=== PATIENT | male | born 1960 | race American Indian/Alaskan Native ===

== ENCOUNTER 2018-02-11 01:11 | Inpatient (IN) | payer MEDICAID ==
[2018-02-11 03:30] LABS: Basophils % (Auto) 0.8 % (0.0-1.8); Eosinophils # (Auto) 0.1 K/mm3 (0.0-0.4); Eosinophils % (Auto) 1.7 % (0.0-4.3); Hematocrit 47.3 % (35.5-45.6); Lymphocytes # (Auto) 1.5 K/mm3 (1.2-5.4); Mean Corpuscular HGB Conc 34 % (32-34); Mean Corpuscular Hemoglobin 30 pg (28-32); Mean Corpuscular Volume 88 fl (84-94); Monocytes # (Auto) 0.7 K/mm3 (0.0-0.8); Monocytes % (Auto) 13.7 % (0.0-7.3); Platelet Count 227 K/mm3 (140-440); Red Cell Distribution Width 15.5 % (13.2-15.2)
[2018-02-11] MEDS ORDERED: CATAPRES ONE (03:35)
[2018-02-11] MEDS ORDERED: CATAPRES PO ONE ×2 (03:50→18:12)
[2018-02-11 04:01] LABS: BUN/Creatinine Ratio 16; Blood Urea Nitrogen 19 mg/dL (9-20); Calcium 8.7 mg/dL (8.4-10.2); Hemolysis Index 12
[2018-02-11 07:50] LABS: Bilirubin,Urine NEG (Negative); Blood,Urine SM (Negative); Calcium Oxalate Crystals,Urine 1+; Color,Urine Yellow (Yellow); Mucus,Urine 1+ /HPF
[2018-02-11 08:02] LABS: Amphetamine Screen,Urine PRESUMPTIVE NEGATIVE; Benzodiazepines Screen,Urine PRESUMPTIVE NEGATIVE; Cannabinoid Screen,Urine PRESUMPTIVE NEGATIVE; Methadone Screen,Urine PRESUMPTIVE NEGATIVE; Opiate Screen,Urine PRESUMPTIVE NEGATIVE
[2018-02-11 08:17] LABS: Cocaine Screen,Urine PRESUMPTIVE POSITIVE
--- NOTE | 2018-02-11 11:22 | Emergency Department Report ---
HPI - General Chief Complaint: Psych Time Seen by Provider: 02/11/18 11:09 - HPI HPI: Room 7 The patient is a 57-year-old male presenting with a chief complaint of right shoulder pain. The patient states he's had pain in his right shoulder radiating down to the fingers for the past 2 weeks. Patient states the pain is constant but worsens with movement. Patient denies any preceding trauma. Patient denies any history of fever. Location: Right shoulder Duration: 2 weeks Quality: Pain Severity: Moderate Modifying factors: [see above] Context: [see above] Mode of transportation: Unknown ED Past Medical Hx - Past Medical History Previous Medical History?: Yes Hx of Cancer: Yes Hx Headaches / Migraines: Yes Hx Psychiatric Treatment: Yes (psychizo affective disorder) Hx Asthma: Yes - Surgical History Past Surgical History?: Yes Hx Cholecystectomy: Yes Additional Surgical History: hip - Family History Family history: no significant - Social History Smoking Status: Current Every Day Smoker Substance Use Type: Alcohol, Cocaine - Medications Home Medications: Home Medications Medication Instructions Recorded Confirmed Last Taken Type ALBUTEROL NEB's [Proventil] 2.5 mg IH TID PRN 12/29/15 12/29/15 Unknown History ALPRAZolam [Xanax TAB] 2 mg PO TID PRN 12/29/15 12/29/15 Unknown History Aspirin [Aspirin BABY CHEW TAB] 81 mg PO QDAY 12/29/15 12/29/15 Unknown History EPINEPHrine (NF) [Epipen (Nf)] 0.3 mg IM PRN PRN 12/29/15 12/29/15 Unknown History Escitalopram Oxalate [Lexapro] 20 mg PO DAILY 12/29/15 12/29/15 Unknown History Hydrochlorothiazide [HCTZ] 25 mg PO QDAY 12/29/15 12/29/15 Unknown History Metoprolol [Lopressor] 25 mg PO BID 12/29/15 12/29/15 Unknown History Omeprazole [PriLOSEC] 20 mg PO QDAY 12/29/15 12/29/15 Unknown History Quetiapine Fumarate [SEROquel] 50 mg PO QDAY 12/29/15 12/29/15 Unknown History Simvastatin [Zocor TAB] 20 mg PO QHS 12/29/15 12/29/15 Unknown History Zolpidem [Ambien] 10 mg PO QHS 12/29/15 12/29/15 Unknown History amLODIPine [Norvasc] 10 mg PO DAILY 12/29/15 12/29/15 Unknown History ED Review of Systems ROS: Stated complaint: HIGH BP/DRUG USE Other details as noted in HPI Constitutional: denies: fever Musculoskeletal: arthralgia, myalgia Physical Exam - Physical Exam Vital Signs: Vital Signs 02/11/18 02/11/18 02/11/18 02:53 04:14 10:32 Temperature 98.8 F Pulse Rate 86 80 Respiratory 20 20 Rate Blood Pressure 195/124 195/124 O2 Sat by Pulse 98 100 Oximetry Laboratory Tests 02/11/18 02/11/18 02/11/18 03:14 03:14 03:14 WBC RBC Hgb Hct MCV MCH MCHC RDW Plt Count Lymph % (Auto) [place] % (Auto) Eos % (Auto) Baso % (Auto) Lymph # [place] # Eos # Baso # Seg Neutrophils % Seg Neutrophils # Sodium 136 L Potassium 4.0 Chloride 94.8 L Carbon Dioxide 26 Anion Gap 19 BUN 19 Creatinine 1.2 Estimated GFR > 60 BUN/Creatinine Ratio 16 Glucose 189 H Calcium 8.7 Urine Color Urine Turbidity Urine pH Ur Specific [place] Urine Protein Urine Glucose (UA) Urine Ketones Urine Blood Urine Nitrite Urine Bilirubin Urine Urobilinogen Ur Leukocyte Esterase Urine WBC (Auto) Urine RBC (Auto) Calcium Oxalate Crystal Urine Mucus Salicylates < 0.3 L Urine Opiates Screen Urine Methadone Screen Acetaminophen < 5.0 L Ur Barbiturates Screen Ur Phencyclidine Scrn Ur Amphetamines Screen U Benzodiazepines Scrn Urine Cocaine Screen U Marijuana (THC) Screen Drugs of Abuse Note Plasma/Serum Alcohol 02/11/18 02/11/18 02/11/18 03:14 03:14 07:07 WBC 5.4 RBC 5.40 H Hgb 16.0 H Hct 47.3 H MCV 88 MCH 30 MCHC 34 RDW 15.5 H Plt Count 227 Lymph % (Auto) 27.0 [place] % (Auto) 13.7 H Eos % (Auto) 1.7 Baso % (Auto) 0.8 Lymph # 1.5 [place] # 0.7 Eos # 0.1 Baso # 0.0 Seg Neutrophils % 56.8 Seg Neutrophils # 3.1 Sodium Potassium Chloride Carbon Dioxide Anion Gap BUN Creatinine Estimated GFR BUN/Creatinine Ratio Glucose Calcium Urine Color Yellow Urine Turbidity Clear Urine pH 5.0 Ur Specific [place] 1.032 H Urine Protein 30 mg/dl Urine Glucose (UA) Neg Urine Ketones Neg Urine Blood Sm Urine Nitrite Neg Urine Bilirubin Neg Urine Urobilinogen 2.0 Ur Leukocyte Esterase Neg Urine WBC (Auto) 2.0 Urine RBC (Auto) 15.0 Calcium Oxalate Crystal 1+ Urine Mucus 1+ Salicylates Urine Opiates Screen Urine Methadone Screen Acetaminophen Ur Barbiturates Screen Ur Phencyclidine Scrn Ur Amphetamines Screen U Benzodiazepines Scrn Urine Cocaine Screen U Marijuana (THC) Screen Drugs of Abuse Note Plasma/Serum Alcohol < 0.01 02/11/18 07:07 WBC RBC Hgb Hct MCV MCH MCHC RDW Plt Count Lymph % (Auto) [place] % (Auto) Eos % (Auto) Baso % (Auto) Lymph # [place] # Eos # Baso # Seg Neutrophils % Seg Neutrophils # Sodium Potassium Chloride Carbon Dioxide Anion Gap BUN Creatinine Estimated GFR BUN/Creatinine Ratio Glucose Calcium Urine Color Urine Turbidity Urine pH Ur Specific [place] Urine Protein Urine Glucose (UA) Urine Ketones Urine Blood Urine Nitrite Urine Bilirubin Urine Urobilinogen Ur Leukocyte Esterase Urine WBC (Auto) Urine RBC (Auto) Calcium Oxalate Crystal Urine Mucus Salicylates Urine Opiates Screen Presumptive negative Urine Methadone Screen Presumptive negative Acetaminophen Ur Barbiturates Screen Presumptive negative Ur Phencyclidine Scrn Presumptive negative Ur Amphetamines Screen Presumptive negative U Benzodiazepines Scrn Presumptive negative Urine Cocaine Screen Presumptive positive U Marijuana (THC) Screen Presumptive negative Drugs of Abuse Note Disclamer Plasma/Serum Alcohol Physical Exam: GENERAL: The patient is well-developed well-nourished male lying on stretcher sleeping on appeared to be in acute distress. [] HEENT: Normocephalic. Atraumatic. Extraocular motions are intact. Patient has moist mucous membranes. NECK: Supple. No meningitic signs are noted. No axial tenderness to palpation CHEST/LUNGS: Clear to auscultation. There is no respiratory distress noted. HEART/CARDIOVASCULAR: Regular. There is no tachycardia. There is no gallop rub or murmur. ABDOMEN: Abdomen is soft, nontender. Patient has normal bowel sounds. There is no abdominal distention. SKIN: There is no rash. There is no edema. There is no diaphoresis. NEURO: The patient is asleep easily awakened by verbal stimuli. Patient frequently falls back asleep during the interview but easily awakened verbal. The patient is cooperative. The patient has normal speech MUSCULOSKELETAL: There is some discomfort to palpation along the right trapezius posteriorly. There is no evidence of acute injury. ED Course Vital Signs 02/11/18 02/11/18 02/11/18 02:53 04:14 10:32 Temperature 98.8 F Pulse Rate 86 80 Respiratory 20 20 Rate Blood Pressure 195/124 195/124 O2 Sat by Pulse 98 100 Oximetry ED Medical Decision Making - Lab Data Result diagrams: 02/11/18 03:14 02/11/18 03:14 Laboratory Tests 02/11/18 02/11/18 02/11/18 03:14 03:14 03:14 WBC RBC Hgb Hct MCV MCH MCHC RDW Plt Count Lymph % (Auto) [place] % (Auto) Eos % (Auto) Baso % (Auto) Lymph # [place] # Eos # Baso # Seg Neutrophils % Seg Neutrophils # Sodium 136 L Potassium 4.0 Chloride 94.8 L Carbon Dioxide 26 Anion Gap 19 BUN 19 Creatinine 1.2 Estimated GFR > 60 BUN/Creatinine Ratio 16 Glucose 189 H Calcium 8.7 Total Creatine Kinase CK-MB (CK-2) CK-MB (CK-2) Rel Index Troponin T Urine Color Urine Turbidity Urine pH Ur Specific [place] Urine Protein Urine Glucose (UA) Urine Ketones Urine Blood Urine Nitrite Urine Bilirubin Urine Urobilinogen Ur Leukocyte Esterase Urine WBC (Auto) Urine RBC (Auto) Calcium Oxalate Crystal Urine Mucus Salicylates < 0.3 L Urine Opiates Screen Urine Methadone Screen Acetaminophen < 5.0 L Ur Barbiturates Screen Ur Phencyclidine Scrn Ur Amphetamines Screen U Benzodiazepines Scrn Urine Cocaine Screen U Marijuana (THC) Screen Drugs of Abuse Note Plasma/Serum Alcohol 02/11/18 02/11/18 02/11/18 03:14 03:14 07:07 WBC 5.4 RBC 5.40 H Hgb 16.0 H Hct 47.3 H MCV 88 MCH 30 MCHC 34 RDW 15.5 H Plt Count 227 Lymph % (Auto) 27.0 [place] % (Auto) 13.7 H Eos % (Auto) 1.7 Baso % (Auto) 0.8 Lymph # 1.5 [place] # 0.7 Eos # 0.1 Baso # 0.0 Seg Neutrophils % 56.8 Seg Neutrophils # 3.1 Sodium Potassium Chloride Carbon Dioxide Anion Gap BUN Creatinine Estimated GFR BUN/Creatinine Ratio Glucose Calcium Total Creatine Kinase CK-MB (CK-2) CK-MB (CK-2) Rel Index Troponin T Urine Color Yellow Urine Turbidity Clear Urine pH 5.0 Ur Specific [place] 1.032 H Urine Protein 30 mg/dl Urine Glucose (UA) Neg Urine Ketones Neg Urine Blood Sm Urine Nitrite Neg Urine Bilirubin Neg Urine Urobilinogen 2.0 Ur Leukocyte Esterase Neg Urine WBC (Auto) 2.0 Urine RBC (Auto) 15.0 Calcium Oxalate Crystal 1+ Urine Mucus 1+ Salicylates Urine Opiates Screen Urine Methadone Screen Acetaminophen Ur Barbiturates Screen Ur Phencyclidine Scrn Ur Amphetamines Screen U Benzodiazepines Scrn Urine Cocaine Screen U Marijuana (THC) Screen Drugs of Abuse Note Plasma/Serum Alcohol < 0.01 02/11/18 02/11/18 07:07 11:33 WBC RBC Hgb Hct MCV MCH MCHC RDW Plt Count Lymph % (Auto) [place] % (Auto) Eos % (Auto) Baso % (Auto) Lymph # [place] # Eos # Baso # Seg Neutrophils % Seg Neutrophils # Sodium Potassium Chloride Carbon Dioxide Anion Gap BUN Creatinine Estimated GFR BUN/Creatinine Ratio Glucose Calcium Total Creatine Kinase 2945 H CK-MB (CK-2) 12.2 H CK-MB (CK-2) Rel Index 0.4 Troponin T < 0.010 Urine Color Urine Turbidity Urine pH Ur Specific [place] Urine Protein Urine Glucose (UA) Urine Ketones Urine Blood Urine Nitrite Urine Bilirubin Urine Urobilinogen Ur Leukocyte Esterase Urine WBC (Auto) Urine RBC (Auto) Calcium Oxalate Crystal Urine Mucus Salicylates Urine Opiates Screen Presumptive negative Urine Methadone Screen Presumptive negative Acetaminophen Ur Barbiturates Screen Presumptive negative Ur Phencyclidine Scrn Presumptive negative Ur Amphetamines Screen Presumptive negative U Benzodiazepines Scrn Presumptive negative Urine Cocaine Screen Presumptive positive U Marijuana (THC) Screen Presumptive negative Drugs of Abuse Note Disclamer Plasma/Serum Alcohol - EKG Data -: EKG Interpreted by Me EKG shows normal: sinus rhythm Rate: normal - EKG Data When compared to previous EKG there are: previous EKG unavailable Interpretation: other (no ischemic changes seen) - Radiology Data Radiology results: image reviewed (right shoulder x-ray) interpreted by me: Right shoulder x-ray-no acute fracture, no dislocation - Medical Decision Making Results discussed with patient. Will admit to the hospital - Differential Diagnosis hypertension, equivalent angina, polysubstance abuse Critical care attestation.: If time is entered above; I have spent that time in minutes in the direct care of this critically ill patient, excluding procedure time. ED Disposition Clinical Impression: Polysubstance abuse, Hypertension, Right shoulder pain, Rhabdomyolysis Disposition: OP ADMIT IP TO THIS HOSP Is pt being admited?: Yes Does the pt Need Aspirin: Yes Condition: Stable Instructions: Hypertension (ED) Time of Disposition: 12:38 (hospitalist notified (Dr Tang))
[2018-02-11 12:18] LABS: Creatine Kinase MB 12.2 ng/mL (0.0-4.0)
--- NOTE | 2018-02-11 12:37 | XRay Report ---
XRAY RIGHT SHOULDER THREE VIEWS: 02/11/18 01:11:00 CLINICAL: Right shoulder pain. FINDINGS: No fracture or dislocation. Mild arthritis of the acromioclavicular joint and glenohumeral joint. Normal soft tissues. IMPRESSION: Mild arthritis.
[2018-02-11] MEDS ORDERED: NACL 0.9% 1000 ML 1,000 ML IV ONE ×2 (12:39)
--- NOTE | 2018-02-11 21:09 | History and Physical Report ---
History of Present Illness Date of examination: 02/11/18 Date of admission: 02/11/18 18:24 Chief complaint: Chief complaint: Right shoulder pain and muscle aches 3 days History of present illness: MEME: 57-year-old female complains of right shoulder pain and generalized muscle pains. Pain is constant. No fever no chills patient on no statins for hyperlipidemia. This has been going on for 2 weeks. Bursal as well as the ER physician to admit because of the elevated CK levels. No trauma Past Medical History Previous Medical History?: Yes Hx of Cancer: Yes Hx Headaches / Migraines: Yes Hx Psychiatric Treatment: Yes (psychizo affective disorder) Hx Asthma: Yes Surgical History Past Surgical History?: Yes Hx Cholecystectomy: Yes Additional Surgical History: hip Family History Family history: no significant Social History Smoking Status: Current Every Day Smoker Substance Use Type: Alcohol, Cocaine - Medications Home Medications: Home Medications Medication Instructions Recorded Confirmed Last Taken Type ALBUTEROL NEB's [Proventil] 2.5 mg IH TID PRN 12/29/15 12/29/15 Unknown History ALPRAZolam [Xanax TAB] 2 mg PO TID PRN 12/29/15 12/29/15 Unknown History Aspirin [Aspirin BABY CHEW TAB] 81 mg PO QDAY 12/29/15 12/29/15 Unknown History EPINEPHrine (NF) [Epipen (Nf)] 0.3 mg IM PRN PRN 12/29/15 12/29/15 Unknown History Escitalopram Oxalate [Lexapro] 20 mg PO DAILY 12/29/15 12/29/15 Unknown History Hydrochlorothiazide [HCTZ] 25 mg PO QDAY 12/29/15 12/29/15 Unknown History Metoprolol [Lopressor] 25 mg PO BID 12/29/15 12/29/15 Unknown History Omeprazole [PriLOSEC] 20 mg PO QDAY 12/29/15 12/29/15 Unknown History Quetiapine Fumarate [SEROquel] 50 mg PO QDAY 12/29/15 12/29/15 Unknown History Simvastatin [Zocor TAB] 20 mg PO QHS 12/29/15 12/29/15 Unknown History Zolpidem [Ambien] 10 mg PO QHS 12/29/15 12/29/15 Unknown History amLODIPine [Norvasc] 10 mg PO DAILY 12/29/15 12/29/15 Unknown History Review of Systems ROS: Stated complaint: HIGH BP/DRUG USE Other details as noted in HPI Constitutional: denies: fever Musculoskeletal: arthralgia, myalgia 14 point review of systems done--- negative otherwise Medications and Allergies Allergies Allergy/AdvReac Type Severity Reaction Status Date / Time Penicillins Allergy Hives Verified 12/28/15 22:38 tomato Allergy Hives Verified 12/28/15 22:38 venom-wasp [wasp venom] Allergy Hives Verified 12/28/15 22:38 Home Medications Medication Instructions Recorded Confirmed Last Taken Type ALBUTEROL NEB's [Proventil] 2.5 mg IH TID PRN 12/29/15 02/11/18 Unknown History ALPRAZolam [Xanax TAB] 2 mg PO TID PRN 12/29/15 02/11/18 Unknown History Aspirin [Aspirin BABY CHEW TAB] 81 mg PO QDAY 12/29/15 12/29/15 Unknown History EPINEPHrine (NF) [Epipen (Nf)] 0.3 mg IM PRN PRN 12/29/15 02/11/18 Unknown History Escitalopram Oxalate [Lexapro] 20 mg PO DAILY 12/29/15 12/29/15 Unknown History Hydrochlorothiazide [HCTZ] 25 mg PO QDAY 12/29/15 02/11/18 Unknown History Metoprolol [Lopressor] 25 mg PO BID 12/29/15 02/11/18 Unknown History Omeprazole [PriLOSEC] 20 mg PO QDAY 12/29/15 12/29/15 Unknown History Quetiapine Fumarate [SEROquel] 50 mg PO QDAY 12/29/15 02/11/18 Unknown History Simvastatin [Zocor TAB] 20 mg PO QHS 12/29/15 12/29/15 Unknown History Zolpidem [Ambien] 10 mg PO QHS 12/29/15 02/11/18 Unknown History amLODIPine [Norvasc] 10 mg PO DAILY 12/29/15 02/11/18 Unknown History Exam - Physical Exam Narrative exam: Patient lying in bed comfortably-in no distress - Constitutional Vitals: Temp Pulse Resp BP Pulse Ox 98.4 F 69 20 148/95 97 02/11/18 20:36 02/11/18 20:36 02/11/18 20:36 02/11/18 20:36 02/11/18 20:36 General appearance: Present: no acute distress, well-nourished - EENT Eyes: Present: PERRL ENT: hearing intact, clear oral mucosa - Neck Neck: Present: supple, normal ROM - Respiratory Respiratory effort: normal Respiratory: bilateral: CTA - Cardiovascular Heart Sounds: Present: S1 & S2. Absent: rub, click - Extremities Extremities: pulses symmetrical, No edema Peripheral Pulses: within normal limits - Abdominal General gastrointestinal: Present: soft, non-tender, non-distended, normal bowel sounds Male genitourinary: Present: normal - Integumentary Integumentary: Present: clear, warm, dry - Musculoskeletal Musculoskeletal: gait normal, strength equal bilaterally - Psychiatric Psychiatric: appropriate mood/affect, intact judgment & insight - Neurologic Neurologic: CNII-XII intact, moves all extremities Results - Labs CBC & Chem 7: 02/11/18 03:14 02/11/18 03:14 Labs: Laboratory Last Values WBC 5.4 K/mm3 (4.5-11.0) 02/11/18 03:14 RBC 5.40 M/mm3 (3.65-5.03) H 02/11/18 03:14 Hgb 16.0 gm/dl (11.8-15.2) H 02/11/18 03:14 Hct 47.3 % (35.5-45.6) H 02/11/18 03:14 MCV 88 fl (84-94) 02/11/18 03:14 MCH 30 pg (28-32) 02/11/18 03:14 MCHC 34 % (32-34) 02/11/18 03:14 RDW 15.5 % (13.2-15.2) H 02/11/18 03:14 Plt Count 227 K/mm3 (140-440) 02/11/18 03:14 Lymph % (Auto) 27.0 % (13.4-35.0) 02/11/18 03:14 [place] % (Auto) 13.7 % (0.0-7.3) H 02/11/18 03:14 Eos % (Auto) 1.7 % (0.0-4.3) 02/11/18 03:14 Baso % (Auto) 0.8 % (0.0-1.8) 02/11/18 03:14 Lymph # 1.5 K/mm3 (1.2-5.4) 02/11/18 03:14 [place] # 0.7 K/mm3 (0.0-0.8) 02/11/18 03:14 Eos # 0.1 K/mm3 (0.0-0.4) 02/11/18 03:14 Baso # 0.0 K/mm3 (0.0-0.1) 02/11/18 03:14 Seg Neutrophils % 56.8 % (40.0-70.0) 02/11/18 03:14 Seg Neutrophils # 3.1 K/mm3 (1.8-7.7) 02/11/18 03:14 Sodium 136 mmol/L (137-145) L 02/11/18 03:14 Potassium 4.0 mmol/L (3.6-5.0) 02/11/18 03:14 Chloride 94.8 mmol/L (98-107) L 02/11/18 03:14 Carbon Dioxide 26 mmol/L (22-30) 02/11/18 03:14 Anion Gap 19 mmol/L 02/11/18 03:14 BUN 19 mg/dL (9-20) 02/11/18 03:14 Creatinine 1.2 mg/dL (0.8-1.5) 02/11/18 03:14 Estimated GFR > 60 ml/min 02/11/18 03:14 BUN/Creatinine Ratio 16 % 02/11/18 03:14 Glucose 189 mg/dL (75-100) H 02/11/18 03:14 Calcium 8.7 mg/dL (8.4-10.2) 02/11/18 03:14 Total Creatine Kinase 2945 units/L (55-170) H 02/11/18 11:33 CK-MB (CK-2) 12.2 ng/mL (0.0-4.0) H 02/11/18 11:33 CK-MB (CK-2) Rel Index 0.4 (0-4) 02/11/18 11:33 Troponin T < 0.010 ng/mL (0.00-0.029) 02/11/18 11:33 Urine Color Yellow (Yellow) 02/11/18 07:07 Urine Turbidity Clear (Clear) 02/11/18 07:07 Urine pH 5.0 (5.0-7.0) 02/11/18 07:07 Ur Specific [place] 1.032 (1.003-1.030) H 02/11/18 07:07 Urine Protein 30 mg/dl mg/dL (Negative) 02/11/18 07:07 Urine Glucose (UA) Neg mg/dL (Negative) 02/11/18 07:07 Urine Ketones Neg mg/dL (Negative) 02/11/18 07:07 Urine Blood Sm (Negative) 02/11/18 07:07 Urine Nitrite Neg (Negative) 02/11/18 07:07 Urine Bilirubin Neg (Negative) 02/11/18 07:07 Urine Urobilinogen 2.0 mg/dL (<2.0) 02/11/18 07:07 Ur Leukocyte Esterase Neg (Negative) 02/11/18 07:07 Urine WBC (Auto) 2.0 /HPF (0.0-6.0) 02/11/18 07:07 Urine RBC (Auto) 15.0 /HPF (0.0-6.0) 02/11/18 07:07 Calcium Oxalate Crystal 1+ 02/11/18 07:07 Urine Mucus 1+ /HPF 02/11/18 07:07 Salicylates < 0.3 mg/dL (2.8-20.0) L 02/11/18 03:14 Urine Opiates Screen Presumptive negative 02/11/18 07:07 Urine Methadone Screen Presumptive negative 02/11/18 07:07 Acetaminophen < 5.0 ug/mL (10.0-30.0) L 02/11/18 03:14 Ur Barbiturates Screen Presumptive negative 02/11/18 07:07 Ur Phencyclidine Scrn Presumptive negative 02/11/18 07:07 Ur Amphetamines Screen Presumptive negative 02/11/18 07:07 U Benzodiazepines Scrn Presumptive negative 02/11/18 07:07 Urine Cocaine Screen Presumptive positive 02/11/18 07:07 U Marijuana (THC) Screen Presumptive negative 02/11/18 07:07 Drugs of Abuse Note Disclamer 02/11/18 07:07 Plasma/Serum Alcohol < 0.01 % (0-0.07) 02/11/18 03:14 Short CBC 02/11/18 Range/Units 03:14 WBC 5.4 (4.5-11.0) K/mm3 Hgb 16.0 H (11.8-15.2) gm/dl Hct 47.3 H (35.5-45.6) % Plt Count 227 (140-440) K/mm3 BMP 02/11/18 03:14 Sodium 136 L Potassium 4.0 Chloride 94.8 L Carbon Dioxide 26 BUN 19 Creatinine 1.2 Glucose 189 H Calcium 8.7 Cardiac Enzymes 02/11/18 Range/Units 11:33 Total Creatine Kinase 2945 H (55-170) units/L CK-MB (CK-2) 12.2 H (0.0-4.0) ng/mL Troponin T < 0.010 (0.00-0.029) ng/mL Urine 02/11/18 Range/Units 07:07 Urine Color Yellow (Yellow) Urine pH 5.0 (5.0-7.0) Ur Specific [place] 1.032 H (1.003-1.030) Urine Protein 30 mg/dl (Negative) mg/dL Urine Glucose (UA) Neg (Negative) mg/dL - Imaging and Cardiology EKG: report reviewed Imaging and Cardiology: Right shoulder x-ray Mild arthritis Assessment and Plan Assessment and plan: ht Advance Directives: Yes (full code) VTE prophylaxis?: Chemical Plan of care discussed with patient/family: Yes - Patient Problems (1) Rhabdomyolysis Current Visit: Yes Status: Acute Qualifiers: Rhabdomyolysis type: non-traumatic Qualified Code(s): M62.82 - Rhabdomyolysis Plan to address problem: Statins were stopped. Patient to be counseled about the effects of statins on myopathy. IV fluids for now Creatinine kinase serially. (2) Right shoulder pain Current Visit: Yes Status: Chronic Plan to address problem: Analgesics as necessary (3) Polysubstance abuse Current Visit: Yes Status: Chronic Plan to address problem: Patient has a history of cocaine abuse. Patient counseled (4) Hypertension Current Visit: Yes Status: Chronic Qualifiers: Hypertension type: essential hypertension Qualified Code(s): I10 - Essential (primary) hypertension Plan to address problem: Including his new continue antihypertensives (5) OXANA (generalized anxiety disorder) Current Visit: Yes Status: Chronic Plan to address problem: continue Xanax (6) Hyperlipidemia Current Visit: Yes Status: Chronic Qualifiers: Hyperlipidemia type: mixed hyperlipidemia Qualified Code(s): E78.2 - Mixed hyperlipidemia Plan to address problem: Statin stopped because of the high creatinine kinase (7) GERD (gastroesophageal reflux disease) Current Visit: Yes Status: Chronic Qualifiers: Esophagitis presence: without esophagitis Qualified Code(s): K21.9 - Gastro -esophageal reflux disease without esophagitis Plan to address problem: continue omeprazole or substituted PPIs (8) Bipolar disorder Current Visit: Yes Status: Chronic Qualifiers: Active/Remission status: in full remission Plan to address problem: continue Seroquel (9) DVT prophylaxis Current Visit: Yes Status: Acute Plan to address problem: On heparin
[2018-02-11] MEDS ORDERED: PROVENTIL IH PRN (21:10)
[2018-02-11] MEDS ORDERED: NON-FORMULARY (Alprazolam [Xanax Tab] 2 MG) PO PRN (21:10)
[2018-02-11] MEDS ORDERED: SODIUM CHLORIDE FLUSH SYRINGE 10 ML IV PRN (21:12)
[2018-02-11] MEDS ORDERED: MORPHINE IV PRN (21:12)
[2018-02-11] MEDS ORDERED: ZOFRAN IV PRN (21:12)
[2018-02-11] MEDS ORDERED: TYLENOL PO PRN (21:12)
[2018-02-11] MEDS ORDERED: NON-FORMULARY (Quetiapine Fumarate [Seroquel] 50 MG) PO SCH (21:15)
[2018-02-11] MEDS ORDERED: NON-FORMULARY (Escitalopram Oxalate [Lexapro] 20 MG) PO SCH (21:15)
[2018-02-11] MEDS ORDERED: XANAX PO PRN (21:26)
[2018-02-11] MEDS: LOPRESSOR PO SCH (22:14)
[2018-02-11] MEDS: AMBIEN PO SCH (22:15)
[2018-02-11] MEDS: BABY ASPIRIN PO SCH (22:15)
[2018-02-11] MEDS: HCTZ PO SCH (22:15)
[2018-02-11] MEDS: NORVASC PO SCH (22:21)
[2018-02-11] MEDS: LEXAPRO PO SCH (22:22)
[2018-02-11] MEDS: HumaLOG SUB-Q SCH (22:22)
[2018-02-11] MEDS: NACL 0.9% 1000 ML 1,000 ML IV SCH (22:22)
[2018-02-11] MEDS: SODIUM CHLORIDE FLUSH SYRINGE 10 ML IV SCH (22:38)
[2018-02-12] MEDS: HumaLOG SUB-Q SCH ×4 (07:36→22:26)
[2018-02-12] MEDS ORDERED: NON-FORMULARY (Omeprazole [Prilosec] 20 MG) PO SCH (10:00)
[2018-02-12] MEDS: LOPRESSOR PO SCH ×2 (11:00→22:39)
[2018-02-12] MEDS: LEXAPRO PO SCH ×3 (11:00→20:43)
[2018-02-12] MEDS: HCTZ PO SCH (11:00)
[2018-02-12] MEDS: NORVASC PO SCH (11:00)
[2018-02-12] MEDS: AMARYL PO SCH (11:01)
[2018-02-12] MEDS: PROTONIX PO SCH (11:01)
[2018-02-12] MEDS: SODIUM CHLORIDE FLUSH SYRINGE 10 ML IV SCH ×2 (11:02→22:41)
[2018-02-12] MEDS: BABY ASPIRIN PO SCH (11:02)
[2018-02-12] MEDS: PERCOCET 5/325 PO PRN (11:15)
[2018-02-12] MEDS: NACL 0.9% 1000 ML 1,000 ML IV SCH ×2 (11:15→22:42)
[2018-02-12 11:18] LABS: Basophils % (Auto) 0.8 % (0.0-1.8); Eosinophils # (Auto) 0.1 K/mm3 (0.0-0.4); Eosinophils % (Auto) 2.2 % (0.0-4.3); Hematocrit 43.4 % (35.5-45.6); Lymphocytes # (Auto) 1.7 K/mm3 (1.2-5.4); Lymphocytes % (Auto) 41.5 % (13.4-35.0); Mean Corpuscular HGB Conc 32 % (32-34); Mean Corpuscular Hemoglobin 29 pg (28-32); Mean Corpuscular Volume 90 fl (84-94); Monocytes # (Auto) 0.6 K/mm3 (0.0-0.8); Monocytes % (Auto) 13.9 % (0.0-7.3); Platelet Count 205 K/mm3 (140-440); Red Blood Count 4.85 M/mm3 (3.65-5.03); Red Cell Distribution Width 15.8 % (13.2-15.2)
[2018-02-12 11:40] LABS: Alanine Aminotransferase 27 units/L (7-56); Albumin 3.5 g/dL (3.9-5); BUN/Creatinine Ratio 10; Blood Urea Nitrogen 10 mg/dL (9-20); Calcium 8.7 mg/dL (8.4-10.2); Hemolysis Index 16
--- NOTE | 2018-02-12 12:09 | Progress Note ---
Assessment and Plan Assessment and plan: Rhabdomyolysis. Continue IV fluid hydration. Follow-up CK levels. Mild right shoulder osteoarthritis. Continue pain control and supportive care. Disposition. Anticipate discharge in a.m. History Interval history: No new issues overnight. Patient complains of right shoulder pain with movement. Hospitalist Physical - Constitutional Vitals: Temp Pulse Resp BP Pulse Ox 98.0 F 63 24 120/80 99 02/12/18 07:30 02/12/18 07:30 02/12/18 07:30 02/12/18 11:00 02/12/18 07:30 General appearance: Present: no acute distress, well-nourished - EENT Eyes: Present: PERRL, EOM intact ENT: hearing intact, clear oral mucosa, dentition normal - Neck Neck: Present: supple, normal ROM - Respiratory Respiratory effort: normal Respiratory: bilateral: CTA - Cardiovascular Rhythm: regular Heart Sounds: Present: S1 & S2. Absent: gallop, rub - Extremities Extremities: no ischemia, No edema, Full ROM - Abdominal General gastrointestinal: soft, non-tender, non-distended, normal bowel sounds - Integumentary Integumentary: Present: clear, warm, dry - Neurologic Neurologic: CNII-XII intact, moves all extremities Results - Labs CBC & Chem 7: 02/12/18 10:13 02/12/18 10:13 Labs: Laboratory Last Values WBC 4.1 K/mm3 (4.5-11.0) L 02/12/18 10:13 RBC 4.85 M/mm3 (3.65-5.03) 02/12/18 10:13 Hgb 14.0 gm/dl (11.8-15.2) 02/12/18 10:13 Hct 43.4 % (35.5-45.6) 02/12/18 10:13 MCV 90 fl (84-94) 02/12/18 10:13 MCH 29 pg (28-32) 02/12/18 10:13 MCHC 32 % (32-34) 02/12/18 10:13 RDW 15.8 % (13.2-15.2) H 02/12/18 10:13 Plt Count 205 K/mm3 (140-440) 02/12/18 10:13 Lymph % (Auto) 41.5 % (13.4-35.0) H 02/12/18 10:13 [place] % (Auto) 13.9 % (0.0-7.3) H 02/12/18 10:13 Eos % (Auto) 2.2 % (0.0-4.3) 02/12/18 10:13 Baso % (Auto) 0.8 % (0.0-1.8) 02/12/18 10:13 Lymph # 1.7 K/mm3 (1.2-5.4) 02/12/18 10:13 [place] # 0.6 K/mm3 (0.0-0.8) 02/12/18 10:13 Eos # 0.1 K/mm3 (0.0-0.4) 02/12/18 10:13 Baso # 0.0 K/mm3 (0.0-0.1) 02/12/18 10:13 Seg Neutrophils % 41.6 % (40.0-70.0) 02/12/18 10:13 Seg Neutrophils # 1.7 K/mm3 (1.8-7.7) L 02/12/18 10:13 Sodium 138 mmol/L (137-145) 02/12/18 10:13 Potassium 3.9 mmol/L (3.6-5.0) 02/12/18 10:13 Chloride 100.8 mmol/L (98-107) 02/12/18 10:13 Carbon Dioxide 24 mmol/L (22-30) 02/12/18 10:13 Anion Gap 17 mmol/L 02/12/18 10:13 BUN 10 mg/dL (9-20) 02/12/18 10:13 Creatinine 1.0 mg/dL (0.8-1.5) 02/12/18 10:13 Estimated GFR > 60 ml/min 02/12/18 10:13 BUN/Creatinine Ratio 10 % 02/12/18 10:13 Glucose 139 mg/dL (75-100) H 02/12/18 10:13 POC Glucose 108 (70-105) H 02/12/18 06:08 Hemoglobin A1c 5.7 % (4-6) 02/11/18 21:55 Calcium 8.7 mg/dL (8.4-10.2) 02/12/18 10:13 Total Bilirubin 0.30 mg/dL (0.1-1.2) 02/12/18 10:13 AST 42 units/L (5-40) H 02/12/18 10:13 ALT 27 units/L (7-56) 02/12/18 10:13 Alkaline Phosphatase 89 units/L (35-129) 02/12/18 10:13 Total Creatine Kinase 1283 units/L (55-170) H 02/12/18 10:13 CK-MB (CK-2) 12.2 ng/mL (0.0-4.0) H 02/11/18 11:33 CK-MB (CK-2) Rel Index 0.4 (0-4) 02/11/18 11:33 Troponin T < 0.010 ng/mL (0.00-0.029) 02/11/18 11:33 Total Protein 5.8 g/dL (6.3-8.2) L 02/12/18 10:13 Albumin 3.5 g/dL (3.9-5) L 02/12/18 10:13 Albumin/Globulin Ratio 1.5 % 02/12/18 10:13 Urine Color Yellow (Yellow) 02/11/18 07:07 Urine Turbidity Clear (Clear) 02/11/18 07:07 Urine pH 5.0 (5.0-7.0) 02/11/18 07:07 Ur Specific [place] 1.032 (1.003-1.030) H 02/11/18 07:07 Urine Protein 30 mg/dl mg/dL (Negative) 02/11/18 07:07 Urine Glucose (UA) Neg mg/dL (Negative) 02/11/18 07:07 Urine Ketones Neg mg/dL (Negative) 02/11/18 07:07 Urine Blood Sm (Negative) 02/11/18 07:07 Urine Nitrite Neg (Negative) 02/11/18 07:07 Urine Bilirubin Neg (Negative) 02/11/18 07:07 Urine Urobilinogen 2.0 mg/dL (<2.0) 02/11/18 07:07 Ur Leukocyte Esterase Neg (Negative) 02/11/18 07:07 Urine WBC (Auto) 2.0 /HPF (0.0-6.0) 02/11/18 07:07 Urine RBC (Auto) 15.0 /HPF (0.0-6.0) 02/11/18 07:07 Calcium Oxalate Crystal 1+ 02/11/18 07:07 Urine Mucus 1+ /HPF 02/11/18 07:07 Salicylates < 0.3 mg/dL (2.8-20.0) L 02/11/18 03:14 Urine Opiates Screen Presumptive negative 02/11/18 07:07 Urine Methadone Screen Presumptive negative 02/11/18 07:07 Acetaminophen < 5.0 ug/mL (10.0-30.0) L 02/11/18 03:14 Ur Barbiturates Screen Presumptive negative 02/11/18 07:07 Ur Phencyclidine Scrn Presumptive negative 02/11/18 07:07 Ur Amphetamines Screen Presumptive negative 02/11/18 07:07 U Benzodiazepines Scrn Presumptive negative 02/11/18 07:07 Urine Cocaine Screen Presumptive positive 02/11/18 07:07 U Marijuana (THC) Screen Presumptive negative 02/11/18 07:07 Drugs of Abuse Note Disclamer 02/11/18 07:07 Plasma/Serum Alcohol < 0.01 % (0-0.07) 02/11/18 03:14
[2018-02-12] MEDS ORDERED: D50W (25GM) Syringe IV PRN (14:30)
[2018-02-12] MEDS: AMBIEN PO SCH (22:40)
[2018-02-13] MEDS: HumaLOG SUB-Q SCH ×4 (07:59→22:00)
[2018-02-13] MEDS: NACL 0.9% 1000 ML 1,000 ML IV SCH ×2 (08:07→16:47)
[2018-02-13] MEDS: LEXAPRO PO SCH (09:30)
[2018-02-13] MEDS: NORVASC PO SCH (09:30)
[2018-02-13] MEDS: BABY ASPIRIN PO SCH (09:30)
[2018-02-13] MEDS: LOPRESSOR PO SCH (09:30)
[2018-02-13] MEDS: PROTONIX PO SCH (09:30)
[2018-02-13] MEDS: AMARYL PO SCH (09:30)
[2018-02-13] MEDS: HCTZ PO SCH (09:30)
[2018-02-13] MEDS: SODIUM CHLORIDE FLUSH SYRINGE 10 ML IV SCH (09:31)
--- NOTE | 2018-02-13 09:36 | Progress Note ---
Assessment and Plan Assessment and plan: Schizoaffective d/o. Psych eval. Initiate 1013. Cont home meds Rhabdomyolysis. Continue IV fluid hydration. Follow-up CK levels.Improving Mild right shoulder osteoarthritis. Continue pain control and supportive care. History Interval history: No new issues overnight. Patient complains wanting to "hurt people that livew around him". Seeking [facility] admission Hospitalist Physical - Constitutional Vitals: Temp Pulse Resp BP Pulse Ox 98.5 F 64 24 150/105 100 02/13/18 07:41 02/13/18 07:41 02/13/18 07:41 02/13/18 07:41 02/13/18 07:41 General appearance: Present: no acute distress, well-nourished - EENT Eyes: Present: PERRL, EOM intact ENT: hearing intact, clear oral mucosa, dentition normal - Neck Neck: Present: supple, normal ROM - Respiratory Respiratory effort: normal Respiratory: bilateral: CTA - Cardiovascular Rhythm: regular Heart Sounds: Present: S1 & S2. Absent: gallop, rub - Extremities Extremities: no ischemia, No edema, Full ROM - Abdominal General gastrointestinal: soft, non-tender, non-distended, normal bowel sounds - Integumentary Integumentary: Present: clear, warm, dry - Neurologic Neurologic: CNII-XII intact, moves all extremities Results - Labs CBC & Chem 7: 02/12/18 10:13 02/12/18 10:13 Labs: Laboratory Last Values WBC 4.1 K/mm3 (4.5-11.0) L 02/12/18 10:13 RBC 4.85 M/mm3 (3.65-5.03) 02/12/18 10:13 Hgb 14.0 gm/dl (11.8-15.2) 02/12/18 10:13 Hct 43.4 % (35.5-45.6) 02/12/18 10:13 MCV 90 fl (84-94) 02/12/18 10:13 MCH 29 pg (28-32) 02/12/18 10:13 MCHC 32 % (32-34) 02/12/18 10:13 RDW 15.8 % (13.2-15.2) H 02/12/18 10:13 Plt Count 205 K/mm3 (140-440) 02/12/18 10:13 Lymph % (Auto) 41.5 % (13.4-35.0) H 02/12/18 10:13 [place] % (Auto) 13.9 % (0.0-7.3) H 02/12/18 10:13 Eos % (Auto) 2.2 % (0.0-4.3) 02/12/18 10:13 Baso % (Auto) 0.8 % (0.0-1.8) 02/12/18 10:13 Lymph # 1.7 K/mm3 (1.2-5.4) 02/12/18 10:13 [place] # 0.6 K/mm3 (0.0-0.8) 02/12/18 10:13 Eos # 0.1 K/mm3 (0.0-0.4) 02/12/18 10:13 Baso # 0.0 K/mm3 (0.0-0.1) 02/12/18 10:13 Seg Neutrophils % 41.6 % (40.0-70.0) 02/12/18 10:13 Seg Neutrophils # 1.7 K/mm3 (1.8-7.7) L 02/12/18 10:13 Sodium 138 mmol/L (137-145) 02/12/18 10:13 Potassium 3.9 mmol/L (3.6-5.0) 02/12/18 10:13 Chloride 100.8 mmol/L (98-107) 02/12/18 10:13 Carbon Dioxide 24 mmol/L (22-30) 02/12/18 10:13 Anion Gap 17 mmol/L 02/12/18 10:13 BUN 10 mg/dL (9-20) 02/12/18 10:13 Creatinine 1.0 mg/dL (0.8-1.5) 02/12/18 10:13 Estimated GFR > 60 ml/min 02/12/18 10:13 BUN/Creatinine Ratio 10 % 02/12/18 10:13 Glucose 139 mg/dL (75-100) H 02/12/18 10:13 POC Glucose 140 (70-105) H 02/13/18 06:05 Hemoglobin A1c 5.7 % (4-6) 02/11/18 21:55 Calcium 8.7 mg/dL (8.4-10.2) 02/12/18 10:13 Total Bilirubin 0.30 mg/dL (0.1-1.2) 02/12/18 10:13 AST 42 units/L (5-40) H 02/12/18 10:13 ALT 27 units/L (7-56) 02/12/18 10:13 Alkaline Phosphatase 89 units/L (35-129) 02/12/18 10:13 Total Creatine Kinase 968 units/L (55-170) H 02/12/18 19:54 CK-MB (CK-2) 12.2 ng/mL (0.0-4.0) H 02/11/18 11:33 CK-MB (CK-2) Rel Index 0.4 (0-4) 02/11/18 11:33 Troponin T < 0.010 ng/mL (0.00-0.029) 02/11/18 11:33 Total Protein 5.8 g/dL (6.3-8.2) L 02/12/18 10:13 Albumin 3.5 g/dL (3.9-5) L 02/12/18 10:13 Albumin/Globulin Ratio 1.5 % 02/12/18 10:13 Urine Color Yellow (Yellow) 02/11/18 07:07 Urine Turbidity Clear (Clear) 02/11/18 07:07 Urine pH 5.0 (5.0-7.0) 02/11/18 07:07 Ur Specific [place] 1.032 (1.003-1.030) H 02/11/18 07:07 Urine Protein 30 mg/dl mg/dL (Negative) 02/11/18 07:07 Urine Glucose (UA) Neg mg/dL (Negative) 02/11/18 07:07 Urine Ketones Neg mg/dL (Negative) 02/11/18 07:07 Urine Blood Sm (Negative) 02/11/18 07:07 Urine Nitrite Neg (Negative) 02/11/18 07:07 Urine Bilirubin Neg (Negative) 02/11/18 07:07 Urine Urobilinogen 2.0 mg/dL (<2.0) 02/11/18 07:07 Ur Leukocyte Esterase Neg (Negative) 02/11/18 07:07 Urine WBC (Auto) 2.0 /HPF (0.0-6.0) 02/11/18 07:07 Urine RBC (Auto) 15.0 /HPF (0.0-6.0) 02/11/18 07:07 Calcium Oxalate Crystal 1+ 02/11/18 07:07 Urine Mucus 1+ /HPF 02/11/18 07:07 Salicylates < 0.3 mg/dL (2.8-20.0) L 02/11/18 03:14 Urine Opiates Screen Presumptive negative 02/11/18 07:07 Urine Methadone Screen Presumptive negative 02/11/18 07:07 Acetaminophen < 5.0 ug/mL (10.0-30.0) L 02/11/18 03:14 Ur Barbiturates Screen Presumptive negative 02/11/18 07:07 Ur Phencyclidine Scrn Presumptive negative 02/11/18 07:07 Ur Amphetamines Screen Presumptive negative 02/11/18 07:07 U Benzodiazepines Scrn Presumptive negative 02/11/18 07:07 Urine Cocaine Screen Presumptive positive 02/11/18 07:07 U Marijuana (THC) Screen Presumptive negative 02/11/18 07:07 Drugs of Abuse Note Disclamer 02/11/18 07:07 Plasma/Serum Alcohol < 0.01 % (0-0.07) 02/11/18 03:14
[2018-02-13] MEDS: PERCOCET 5/325 PO PRN (14:37)
[2018-02-14] MEDS: AMBIEN PO SCH ×2 (00:08→22:23)
[2018-02-14] MEDS: LOPRESSOR PO SCH ×4 (00:08→22:23)
[2018-02-14] MEDS: SODIUM CHLORIDE FLUSH SYRINGE 10 ML IV SCH ×3 (00:11→22:25)
[2018-02-14] MEDS: HumaLOG SUB-Q SCH ×4 (07:21→22:26)
[2018-02-14] MEDS: NORVASC PO SCH ×2 (08:05→10:16)
[2018-02-14] MEDS: AMARYL PO SCH (08:06)
[2018-02-14] MEDS: HCTZ PO SCH ×2 (08:06→10:15)
[2018-02-14] MEDS: CATAPRES PO SCH ×2 (09:34→22:24)
[2018-02-14] MEDS: BABY ASPIRIN PO SCH (10:14)
[2018-02-14] MEDS: LEXAPRO PO SCH (10:14)
[2018-02-14] MEDS: PROTONIX PO SCH (10:14)
--- NOTE | 2018-02-14 10:48 | Progress Note ---
Assessment and Plan Assessment and plan: Schizoaffective d/o. Psych eval. Initiate 1013. Cont home meds Rhabdomyolysis. Continue IV fluid hydration. Follow-up CK levels.Improving Mild right shoulder osteoarthritis. Continue pain control and supportive care. Polysubstance abuse. I d/w Nurse [employer] and medical Stabilization Unit liason for rehab to determine potential transfer. Awaiting f/u History Interval history: No new issues overnight. Hospitalist Physical - Constitutional Vitals: Temp Pulse Resp BP Pulse Ox 98.4 F 70 20 198/118 96 02/14/18 07:46 02/14/18 08:06 02/14/18 07:46 02/14/18 08:06 02/13/18 22:03 General appearance: Present: no acute distress, well-nourished - EENT Eyes: Present: PERRL, EOM intact ENT: hearing intact, clear oral mucosa, dentition normal - Neck Neck: Present: supple, normal ROM - Respiratory Respiratory effort: normal Respiratory: bilateral: CTA - Cardiovascular Rhythm: regular Heart Sounds: Present: S1 & S2. Absent: gallop, rub - Extremities Extremities: no ischemia, No edema, Full ROM - Abdominal General gastrointestinal: soft, non-tender, non-distended, normal bowel sounds - Integumentary Integumentary: Present: clear, warm, dry - Neurologic Neurologic: CNII-XII intact, moves all extremities Results - Labs CBC & Chem 7: 02/12/18 10:13 02/12/18 10:13 Labs: Laboratory Last Values WBC 4.1 K/mm3 (4.5-11.0) L 02/12/18 10:13 RBC 4.85 M/mm3 (3.65-5.03) 02/12/18 10:13 Hgb 14.0 gm/dl (11.8-15.2) 02/12/18 10:13 Hct 43.4 % (35.5-45.6) 02/12/18 10:13 MCV 90 fl (84-94) 02/12/18 10:13 MCH 29 pg (28-32) 02/12/18 10:13 MCHC 32 % (32-34) 02/12/18 10:13 RDW 15.8 % (13.2-15.2) H 02/12/18 10:13 Plt Count 205 K/mm3 (140-440) 02/12/18 10:13 Lymph % (Auto) 41.5 % (13.4-35.0) H 02/12/18 10:13 [place] % (Auto) 13.9 % (0.0-7.3) H 02/12/18 10:13 Eos % (Auto) 2.2 % (0.0-4.3) 02/12/18 10:13 Baso % (Auto) 0.8 % (0.0-1.8) 02/12/18 10:13 Lymph # 1.7 K/mm3 (1.2-5.4) 02/12/18 10:13 [place] # 0.6 K/mm3 (0.0-0.8) 02/12/18 10:13 Eos # 0.1 K/mm3 (0.0-0.4) 02/12/18 10:13 Baso # 0.0 K/mm3 (0.0-0.1) 02/12/18 10:13 Seg Neutrophils % 41.6 % (40.0-70.0) 02/12/18 10:13 Seg Neutrophils # 1.7 K/mm3 (1.8-7.7) L 02/12/18 10:13 Sodium 138 mmol/L (137-145) 02/12/18 10:13 Potassium 3.9 mmol/L (3.6-5.0) 02/12/18 10:13 Chloride 100.8 mmol/L (98-107) 02/12/18 10:13 Carbon Dioxide 24 mmol/L (22-30) 02/12/18 10:13 Anion Gap 17 mmol/L 02/12/18 10:13 BUN 10 mg/dL (9-20) 02/12/18 10:13 Creatinine 1.0 mg/dL (0.8-1.5) 02/12/18 10:13 Estimated GFR > 60 ml/min 02/12/18 10:13 BUN/Creatinine Ratio 10 % 02/12/18 10:13 Glucose 139 mg/dL (75-100) H 02/12/18 10:13 POC Glucose 97 (70-105) 02/14/18 05:10 Hemoglobin A1c 5.7 % (4-6) 02/11/18 21:55 Calcium 8.7 mg/dL (8.4-10.2) 02/12/18 10:13 Total Bilirubin 0.30 mg/dL (0.1-1.2) 02/12/18 10:13 AST 42 units/L (5-40) H 02/12/18 10:13 ALT 27 units/L (7-56) 02/12/18 10:13 Alkaline Phosphatase 89 units/L (35-129) 02/12/18 10:13 Total Creatine Kinase 276 units/L (55-170) H 02/14/18 09:07 CK-MB (CK-2) 12.2 ng/mL (0.0-4.0) H 02/11/18 11:33 CK-MB (CK-2) Rel Index 0.4 (0-4) 02/11/18 11:33 Troponin T < 0.010 ng/mL (0.00-0.029) 02/11/18 11:33 Total Protein 5.8 g/dL (6.3-8.2) L 02/12/18 10:13 Albumin 3.5 g/dL (3.9-5) L 02/12/18 10:13 Albumin/Globulin Ratio 1.5 % 02/12/18 10:13 Urine Color Yellow (Yellow) 02/11/18 07:07 Urine Turbidity Clear (Clear) 02/11/18 07:07 Urine pH 5.0 (5.0-7.0) 02/11/18 07:07 Ur Specific [place] 1.032 (1.003-1.030) H 02/11/18 07:07 Urine Protein 30 mg/dl mg/dL (Negative) 02/11/18 07:07 Urine Glucose (UA) Neg mg/dL (Negative) 02/11/18 07:07 Urine Ketones Neg mg/dL (Negative) 02/11/18 07:07 Urine Blood Sm (Negative) 02/11/18 07:07 Urine Nitrite Neg (Negative) 02/11/18 07:07 Urine Bilirubin Neg (Negative) 02/11/18 07:07 Urine Urobilinogen 2.0 mg/dL (<2.0) 02/11/18 07:07 Ur Leukocyte Esterase Neg (Negative) 02/11/18 07:07 Urine WBC (Auto) 2.0 /HPF (0.0-6.0) 02/11/18 07:07 Urine RBC (Auto) 15.0 /HPF (0.0-6.0) 02/11/18 07:07 Calcium Oxalate Crystal 1+ 02/11/18 07:07 Urine Mucus 1+ /HPF 02/11/18 07:07 Salicylates < 0.3 mg/dL (2.8-20.0) L 02/11/18 03:14 Urine Opiates Screen Presumptive negative 02/11/18 07:07 Urine Methadone Screen Presumptive negative 02/11/18 07:07 Acetaminophen < 5.0 ug/mL (10.0-30.0) L 02/11/18 03:14 Ur Barbiturates Screen Presumptive negative 02/11/18 07:07 Ur Phencyclidine Scrn Presumptive negative 02/11/18 07:07 Ur Amphetamines Screen Presumptive negative 02/11/18 07:07 U Benzodiazepines Scrn Presumptive negative 02/11/18 07:07 Urine Cocaine Screen Presumptive positive 02/11/18 07:07 U Marijuana (THC) Screen Presumptive negative 02/11/18 07:07 Drugs of Abuse Note Disclamer 02/11/18 07:07 Plasma/Serum Alcohol < 0.01 % (0-0.07) 02/11/18 03:14
--- NOTE | 2018-02-14 18:37 | Consultation ---
History of Present Illness - Reason for Consult Reason for consult: recent cocaine abuse, depression - Chief Complaint Chief complaint: CHIEF COMPLAINT IN PATIENTS WORDS: HISTORY OF PRESENT ILLNESS: This is a 57-year-old male with a past psychiatric history of major depression , PTSD who presents secondary to recent cocaine abuse. Patient notes that he has several psychosocial stressors and engaged in cocaine use 1 time in the past 10 years. Patient more frequently uses alcohol which he describes as monthly usage. PSYCHIATRIC REVIEW OF SYSTEMS: Substance: UDS + cocaine Detoxification/Withdrawal: none noted Depression: anhednoia, amotivation, sleep onset difficulties, helpless Naz: no labile moods, not hyperverbal, no flight of ideas Psychosis: no AVH, no thought disorder noted, no paranoia/grandiosity/erotomania Anxiety/ OCD/ PTSD: anxiety, worries about , panic like symptoms Suicidality: denies SI Other Self-Injurious Behavior: none currently, no SIB noted recently Violent/ Aggressive Behavior: none noted CURRENT MEDICATIONS: Seroquel Xanax 2 mg tid Ambien 10 mg qhs ALLERGIES: penicillin, Tomato PAST PSYCHIATRIC HISTORY: poor historian about past history PAST PSYCHIATRIC MEDICATION TRIALS: denies MEDICAL HISTORY: per H&P MENTAL STATUS EXAM: General Appearance: Dressed in hospital gown, in acute distress Sensorium/Consciousness: alert and responding to external stimuli Eye Contact: limited Attitude / Behavior: cooperative, but guarded Psychomotor & Musculoskeletal Activity: WNL Mood: not so good, life happened Affect: constricted Speech / Language: normal Thought Processes: perseverative Thought Content: ruminations, helpless, no SI, no HI Perception: no AVH Orientation: person, place, time, situation Judgment What would you do if you smelled smoke in a crowded movie theater?: poor/impulsive Insight: poor Intelligence Vocabulary, general fund of knowledge, educational level: Average Capacity of ADLs: Independent STRENGTHS: future oriented PSYCHOSOCIAL AND ENVIRONMENTAL STRESSORS: on crack/cocaine ASSESSMENT: SIMD MDD PTSD PLAN OF CARE: Continue seroquel and titrate to 100mg qhs tomorrow Continue xanax and ambien at current dose Identify new PCP that can treat co-occurring mental health diagnosis. Medications and Allergies Allergies Allergy/AdvReac Type Severity Reaction Status Date / Time Penicillins Allergy Hives Verified 12/28/15 22:38 tomato Allergy Hives Verified 12/28/15 22:38 venom-wasp [wasp venom] Allergy Hives Verified 12/28/15 22:38 Home Medications Medication Instructions Recorded Confirmed Last Taken Type ALBUTEROL NEB's [Proventil] 2.5 mg IH TID PRN 12/29/15 02/11/18 Unknown History ALPRAZolam [Xanax TAB] 2 mg PO TID PRN 12/29/15 02/11/18 Unknown History Aspirin [Aspirin BABY CHEW TAB] 81 mg PO QDAY 12/29/15 02/14/18 Unknown History EPINEPHrine (NF) [Epipen (Nf)] 0.3 mg IM PRN PRN 12/29/15 02/11/18 Unknown History Escitalopram Oxalate [Lexapro] 20 mg PO DAILY 12/29/15 02/14/18 Unknown History Hydrochlorothiazide [HCTZ] 25 mg PO QDAY 12/29/15 02/11/18 Unknown History Metoprolol [Lopressor] 25 mg PO BID 12/29/15 02/11/18 Unknown History Omeprazole [PriLOSEC] 20 mg PO QDAY 12/29/15 02/14/18 Unknown History Quetiapine Fumarate [SEROquel] 50 mg PO QDAY 12/29/15 02/11/18 Unknown History Simvastatin [Zocor TAB] 20 mg PO QHS 12/29/15 02/14/18 Unknown History Zolpidem [Ambien] 10 mg PO QHS 12/29/15 02/11/18 Unknown History amLODIPine [Norvasc] 10 mg PO DAILY 12/29/15 02/11/18 Unknown History Active Meds: Active Medications Acetaminophen (Tylenol) 650 mg PO Q4H PRN PRN Reason: Pain MILD(1-3)/Fever >100.5/[place] Albuterol (Proventil) 2.5 mg IH TID PRN PRN Reason: Wheezing Alprazolam (Xanax) 2 mg PO TID PRN PRN Reason: Anxiety Last Admin: 02/14/18 13:17 Dose: 2 mg Amlodipine Besylate (Norvasc) 10 mg PO DAILY [facility] Last Admin: 02/14/18 10:16 Dose: Not Given Aspirin (Baby Aspirin) 81 mg PO QDAY [facility] Last Admin: 02/14/18 10:14 Dose: 81 mg Clonidine HCl (Catapres) 0.1 mg PO Q12HR [facility] Last Admin: 02/14/18 09:34 Dose: 0.1 mg Dextrose (D50w (25gm) Syringe) 50 ml IV PRN PRN PRN Reason: Hypoglycemia Last Admin: 02/12/18 14:37 Dose: 50 ml Escitalopram Oxalate (Lexapro) 20 mg PO DAILY [facility] Last Admin: 02/14/18 10:14 Dose: Not Given Glimepiride (Amaryl) 2 mg PO QDDIAB [facility] Last Admin: 02/14/18 08:06 Dose: 2 mg Hydrochlorothiazide (Hctz) 25 mg PO QDAY [facility] Last Admin: 02/14/18 10:15 Dose: Not Given Insulin Human Lispro (Humalog) 0 unit SUB-Q ACHS [facility]; Protocol Last Admin: 02/14/18 16:18 Dose: Not Given Metoprolol Tartrate (Lopressor) 25 mg PO BID [facility] Last Admin: 02/14/18 10:16 Dose: Not Given Morphine Sulfate (Morphine) 2 mg IV Q4H PRN PRN Reason: Pain, Moderate (4-6) Last Admin: 02/13/18 14:43 Dose: 2 mg Ondansetron HCl (Zofran) 4 mg IV Q8H PRN PRN Reason: Nausea And Vomiting Oxycodone/Acetaminophen (Percocet 5/325) 1 tab PO Q6H PRN PRN Reason: Pain, Moderate (4-6) Last Admin: 02/12/18 11:15 Dose: 1 tab Pantoprazole Sodium (Protonix) 20 mg PO QDAY [facility] Last Admin: 02/14/18 10:14 Dose: 20 mg Quetiapine Fumarate (Seroquel) 50 mg PO QHS [facility] Last Admin: 02/14/18 00:07 Dose: 50 mg Sodium Chloride (Sodium Chloride Flush Syringe 10 Ml) 10 ml IV BID [facility] Last Admin: 02/14/18 10:15 Dose: 10 ml Sodium Chloride (Sodium Chloride Flush Syringe 10 Ml) 10 ml IV PRN PRN PRN Reason: LINE FLUSH Zolpidem Tartrate (Ambien) 10 mg PO QHS [facility] Last Admin: 02/14/18 00:08 Dose: 10 mg Mental Status Exam - Vital signs Last Vital Signs Temp 97.7 F 02/14/18 15:34 Pulse 68 02/14/18 15:34 Resp 20 02/14/18 15:34 BP 131/92 02/14/18 15:34 Pulse Ox 100 02/14/18 15:34 Results Result Diagrams: 02/12/18 10:13 02/12/18 10:13 Abnormal lab results 02/13/18 02/14/18 02/14/18 Range/Units 20:22 09:07 16:04 POC Glucose 149 H (70-105) Total Creatine Kinase 429 H 276 H (55-170) units/L All other labs normal.
[2018-02-15] MEDS: PERCOCET 5/325 PO PRN ×2 (01:03→16:05)
[2018-02-15] MEDS: HumaLOG SUB-Q SCH ×2 (08:37→11:31)
[2018-02-15] MEDS: AMARYL PO SCH (08:38)
[2018-02-15] MEDS: HCTZ PO SCH (09:18)
[2018-02-15] MEDS: BABY ASPIRIN PO SCH (09:18)
[2018-02-15] MEDS: LEXAPRO PO SCH (09:19)
[2018-02-15] MEDS: PROTONIX PO SCH (09:19)
[2018-02-15] MEDS: SODIUM CHLORIDE FLUSH SYRINGE 10 ML IV SCH (09:19)
[2018-02-15] MEDS: NORVASC PO SCH (09:21)
[2018-02-15] MEDS: CATAPRES PO SCH (09:21)
[2018-02-15] MEDS: LOPRESSOR PO SCH (09:21)
--- NOTE | 2018-02-15 13:33 | Progress Note ---
Subjective - Reason for Consult Consult date: 02/15/18 Reason for consult: Psychiatric Follow-up Evaluation - Chief Complaint Chief complaint: CHIEF COMPLAINT IN PATIENTS WORDS: HISTORY OF PRESENT ILLNESS: This is a 57-year-old male with a past psychiatric history of major depression , PTSD who presents secondary to recent cocaine abuse. Patient notes that he has several psychosocial stressors and engaged in cocaine use 1 time in the past 10 years. Patient more frequently uses alcohol which he describes as monthly usage. PSYCHIATRIC REVIEW OF SYSTEMS: Substance: UDS + cocaine Detoxification/Withdrawal: none noted Depression: anhednoia, amotivation, sleep onset difficulties, helpless Naz: no labile moods, not hyperverbal, no flight of ideas Psychosis: no AVH, no thought disorder noted, no paranoia/grandiosity/erotomania Anxiety/ OCD/ PTSD: anxiety, worries about , panic like symptoms Suicidality: denies SI Other Self-Injurious Behavior: none currently, no SIB noted recently Violent/ Aggressive Behavior: none noted CURRENT MEDICATIONS: Seroquel Xanax 2 mg tid Ambien 10 mg qhs ALLERGIES: penicillin, Tomato PAST PSYCHIATRIC HISTORY: poor historian about past history PAST PSYCHIATRIC MEDICATION TRIALS: denies MEDICAL HISTORY: per H&P MENTAL STATUS EXAM: General Appearance: Dressed in hospital gown, in acute distress Sensorium/Consciousness: alert and responding to external stimuli Eye Contact: limited Attitude / Behavior: cooperative, but guarded Psychomotor & Musculoskeletal Activity: WNL Mood: not so good, life happened Affect: constricted Speech / Language: normal Thought Processes: perseverative Thought Content: ruminations, helpless, no SI, no HI Perception: no AVH Orientation: person, place, time, situation Judgment What would you do if you smelled smoke in a crowded movie theater?: poor/impulsive Insight: poor Intelligence Vocabulary, general fund of knowledge, educational level: Average Capacity of ADLs: Independent STRENGTHS: future oriented PSYCHOSOCIAL AND ENVIRONMENTAL STRESSORS: on crack/cocaine ASSESSMENT: SIMD MDD PTSD PLAN OF CARE: Continue seroquel and titrate to 100mg qhs tomorrow Continue xanax and ambien at current dose Identify new PCP that can treat co-occurring mental health diagnosis. Mental Status Exam - Vital signs Last Vital Signs Temp 98.1 F 02/15/18 07:39 Pulse 84 02/15/18 09:21 Resp 24 02/15/18 07:39 BP 107/72 02/15/18 09:21 Pulse Ox 97 02/15/18 07:39 - Exam Narrative exam: Mental Status Exam: General Appearance: Dressed in hospital gown, in acute distress Sensorium/Consciousness: alert and responding to external stimuli Eye Contact: limited Attitude / Behavior: cooperative, but guarded Psychomotor & Musculoskeletal Activity: WNL Mood: not so good, life happened Affect: constricted Speech / Language: normal Thought Processes: perseverative Thought Content: ruminations, helpless, no SI, no HI Perception: no AVH Orientation: person, place, time, situation Judgment What would you do if you smelled smoke in a crowded movie theater?: poor/impulsive Insight: poor Intelligence Vocabulary, general fund of knowledge, educational level: Average Capacity of ADLs: Independent Assessment and Plan ASSESSMENT: SIMD MDD PTSD PLAN OF CARE: Continue seroquel and titrate to 100mg qhs tomorrow Continue xanax and ambien at current dose Identify new PCP that can treat co-occurring mental health diagnosis
--- NOTE | 2018-02-15 15:40 | Discharge Summary ---
Providers - Providers Date of Admission: 02/11/18 18:24 Date of discharge: 02/15/18 Attending physician: ASHU PARK 02/13/18 09:36 Consult to Mental Health [CONS] Routine Reason For Exam: ?HI, hx schizoaffective d/o Place consult to:: Mental HEALTH Notified:: BRE Phone number called:: [phone] Was contact made?: Yes If yes, spoke with:: BRE Time called:: 10:40 Comment:: SABRINA NOTIFIED Primary care physician: [facility] Hospitalization Condition: Stable Hospital course: Mr. Forrester is 57 yo man with a history of tobacco dependency, mdd, ptsd, gerd and cocaine abuse who presented with Shoulder pains and admitted for Rhabdomyolysis. Schizoaffective d/o. Psych eval. Not on 1013. Cont home meds Rhabdomyolysis. Continue IV fluid hydration. Follow-up CK levels.Improving Right shoulder osteoarthritis. Continue pain control and supportive care. Polysubstance abuse with cocaine. I d/w Nurse Physical Therapy Nurse and medical Stabilization Unit liason for rehab to determine potential transfer. Patient will be discharge and go to the Medical stabilization unit tomorrow. Disposition: DC-01 TO HOME OR SELFCARE Time spent for discharge: 35 minutes Core Measure Documentation - Palliative Care Palliative Care/ Comfort Measures: Not Applicable - Core Measures Any of the following diagnoses?: none - VTE Discharge Requirements Deep Vein Thrombosis/Pulmonary Embolism Present on Admission: No Has pt received <5 days of overlap therapy or INR<2.0: No Anticoagulant overlap therapy prescribed at discharge: No Contraindication No Overlap Therapy order at DC: Not Indicated Exam - Constitutional Vitals: Temp Pulse Resp BP Pulse Ox 98.1 F 84 24 107/72 97 02/15/18 07:39 02/15/18 09:21 02/15/18 07:39 02/15/18 09:21 02/15/18 07:39 General appearance: Present: no acute distress - EENT Eyes: Present: PERRL, EOM intact ENT: hearing intact, clear oral mucosa - Neck Neck: Present: supple, normal ROM - Respiratory Respiratory effort: normal Respiratory: bilateral: CTA - Cardiovascular Rhythm: regular Heart Sounds: Present: S1 & S2 - Extremities Extremities: no ischemia, pulses intact - Abdominal General gastrointestinal: Present: soft, non-tender, non-distended, normal bowel sounds - Musculoskeletal Musculoskeletal: strength equal bilaterally - Psychiatric Psychiatric: appropriate mood/affect - Neurologic Neurologic: CNII-XII intact Plan Activity: other (no strenous activity) Diet: low salt Prescriptions: QUEtiapine [SEROquel] 50 mg PO QHS #30 tablet Zolpidem [Ambien] 10 mg PO QHS PRN #4 tablet PRN Reason: Insomnia ALPRAZolam [Xanax TAB] 1 mg PO TID PRN #15 tablet PRN Reason: Anxiety cloNIDine [Catapres] 0.1 mg PO Q12HR #60 tablet Escitalopram [Lexapro] 20 mg PO DAILY #30 tablet Hydrochlorothiazide [HCTZ] 25 mg PO QDAY #30 tablet Lispro Insulin [Humalog] 1 dose SUB-Q ACHS PRN #100 units PRN Reason: Hyperglycemia Metoprolol [Lopressor TAB] 25 mg PO BID #60 tablet oxyCODONE /ACETAMINOPHEN [Percocet 5/325 mg] 1 tab PO Q6H PRN #4 tablet PRN Reason: Pain , Severe (7-10) Pantoprazole [Protonix TAB] 20 mg PO QDAY #30 tablet.
[2018-02-15 17:04] VITALS: BP 143/90
== END 2018-02-15 17:00 | disposition home or self-care (01) | DRG 558 ==
LOC: ED 01:11 → 3A 18:24
PROVIDERS: ADMIT Internal Medicine; ATTEND Internal Medicine
DX: M62.82 Rhabdomyolysis (principal); M19.011 Primary osteoarthritis, right shoulder; G43.909 Migraine, unspecified, not intractable, without status migrainosus; J45.909 Unspecified asthma, uncomplicated; F17.200 Nicotine dependence, unspecified, uncomplicated; F19.10 Other psychoactive substance abuse, uncomplicated; I10 Essential (primary) hypertension; F41.1 Generalized anxiety disorder; E78.5 Hyperlipidemia, unspecified; K21.9 Gastro-esophageal reflux disease without esophagitis; F31.9 Bipolar disorder, unspecified; F25.9 Schizoaffective disorder, unspecified; F14.10 Cocaine abuse, uncomplicated; F42.9 Obsessive-compulsive disorder, unspecified; Z90.49 Acquired absence of other specified parts of digestive tract; Z88.0 Allergy status to penicillin
CPT/HCPCS: 36415; 80048; 80053; 80307; 80320; 81001; 82550; 82553; 82962; 83036; 84484; 85025; 93005; 93010; 96360; 96375; G0480; J1815; J2270; J7030

== ENCOUNTER 2018-03-06 16:06 | Inpatient (IN) | payer MEDICAID ==
[2018-03-06] MEDS ORDERED: ZOFRAN ODT PO PRN (16:16)
[2018-03-06] MEDS ORDERED: IMODIUM PO PRN (16:16)
[2018-03-06] MEDS ORDERED: MOTRIN PO PRN (16:16)
[2018-03-06] MEDS ORDERED: SENOKOT PO PRN (16:16)
[2018-03-06] MEDS ORDERED: HABITROL TD PRN (16:16)
[2018-03-06] MEDS ORDERED: ALUM-MAG HYDROX-SIMETH 200-200-20MG/5ML PO PRN (16:16)
[2018-03-06] MEDS ORDERED: DULCOLAX PR PRN (16:16)
[2018-03-06] MEDS ORDERED: ATIVAN IV PRN ×2 (16:16→16:39)
[2018-03-06] MEDS ORDERED: TYLENOL PO PRN (16:16)
[2018-03-06] MEDS ORDERED: ZOFRAN IV PRN (16:16)
[2018-03-06] MEDS ORDERED: VISTARIL IM PRN (16:35)
[2018-03-06] MEDS ORDERED: ROBAXIN PO PRN (16:39)
[2018-03-06] MEDS ORDERED: BENTYL PO PRN (16:39)
[2018-03-06] MEDS ORDERED: VISTARIL PO PRN (16:39)
[2018-03-06] MEDS ORDERED: VITAMIN B-1 100 MG, FOLVITE 1 MG, INFUVITE 10 ML in NACL 0.9% 1000 ML 1,000 ML IV ONE (16:48)
[2018-03-06] MEDS: VITAMIN B-1 PO SCH (17:26)
[2018-03-06] MEDS: ATIVAN PO SCH ×2 (17:32→22:50)
[2018-03-06] MEDS: THERAGRAN Tab PO SCH (17:33)
[2018-03-06] MEDS: FOLVITE PO SCH (17:37)
[2018-03-06] MEDS ORDERED: NACL 0.9% 1000 ML 1,000 ML IV SCH (18:00)
[2018-03-06] MEDS ORDERED: COZAAR PO SCH (18:00)
[2018-03-06 18:43] LABS: Hematocrit 43.8 % (35.5-45.6); Hemoglobin 14.3 gm/dl (11.8-15.2); Mean Corpuscular HGB Conc 33 % (32-34); Mean Corpuscular Hemoglobin 29 pg (28-32); Mean Corpuscular Volume 88 fl (84-94); Platelet Count 237 K/mm3 (140-440); Red Cell Distribution Width 15.1 % (13.2-15.2)
[2018-03-06 18:52] LABS: INR 0.86 (0.87-1.13)
[2018-03-06 19:07] LABS: Alanine Aminotransferase 20 units/L (7-56); Albumin 4.1 g/dL (3.9-5); BUN/Creatinine Ratio 13; Blood Urea Nitrogen 14 mg/dL (9-20); Calcium 9.1 mg/dL (8.4-10.2); Hemolysis Index 7
[2018-03-06 19:22] LABS: Bilirubin,Urine NEG (Negative); Blood,Urine NEG (Negative); Color,Urine Yellow (Yellow); Mucus,Urine FEW /HPF; Protein,Urine <15 mg/dL mg/dL (Negative); Urobilinogen,Urine < 2.0 mg/dL (<2.0); WBC,Urine < 1.0 /HPF (0.0-6.0)
[2018-03-06 19:29] LABS: Amphetamine Screen,Urine PRESUMPTIVE NEGATIVE; Benzodiazepines Screen,Urine PRESUMPTIVE NEGATIVE; Cannabinoid Screen,Urine PRESUMPTIVE NEGATIVE; Methadone Screen,Urine PRESUMPTIVE NEGATIVE; Opiate Screen,Urine PRESUMPTIVE NEGATIVE
[2018-03-06 19:45] LABS: Cocaine Screen,Urine PRESUMPTIVE POSITIVE
[2018-03-06] MEDS: DESYREL PO SCH (22:58)
[2018-03-07] MEDS: ATIVAN PO SCH ×5 (01:52→18:10)
[2018-03-07] MEDS ORDERED: COZAAR PO SCH ×2 (06:45→07:00)
[2018-03-07] MEDS ORDERED: TYLENOL PO PRN (07:53)
[2018-03-07] MEDS ORDERED: XANAX PO PRN (07:53)
[2018-03-07] MEDS ORDERED: PERCOCET 5/325 PO PRN (07:53)
[2018-03-07] MEDS ORDERED: AMBIEN PO PRN (07:53)
--- NOTE | 2018-03-07 07:53 | Event Note ---
Date: 03/06/18 See dictated H/p in reports
--- NOTE | 2018-03-07 08:24 | History and Physical Report ---
CHIEF COMPLAINT: ETOH and cocaine withdrawal symptoms. HISTORY OF PRESENT ILLNESS: A 57-year-old -[place] male with history of hypertension and bipolar disorder, comes in for alcohol and cocaine dependency and withdrawal symptoms. The patient has been anxious and tremorous. No palpitations. The patient has craving for alcohol and cocaine and wants help with withdrawal symptoms. The patient wants to be stabilized and be detox later. Other than being nervousness and tremulousness, the patient has been doing well. No fever, no chills. No shortness of breath. Occasional palpitations off and on present. Occasional diaphoresis present. PAST MEDICAL HISTORY: Significant for hypertension, bipolar disorder, generalized anxiety disorder. Also, chronic pain. CURRENT MEDICATIONS: Xanax 1 mg 3 times a day, aspirin 81 mg once a day, clonidine 0.1 mg q.12h., hydrochlorothiazide 25 mg once a day, Percocet 5/325 mg one tablet q.6h. p.r.n., Seroquel 25 mg at nighttime and zolpidem 10 mg at night time. PAST SURGICAL HISTORY: None. SOCIAL HISTORY: Alcohol as beers 2-3 days of [place], three fifth bottle followed by being free of alcohol for 4-5 days. Also, cocaine using up to $200 worth of cocaine in a day and uses about 2-3 days and then not used for 4-5 days. This has been going on for the last 3-4 years. The patient has been having some withdrawal symptoms because of that. FAMILY HISTORY: Significant for hypertension. REVIEW OF SYSTEMS: Significant for tremulousness and occasional palpitations and nervousness. Otherwise, review of systems is essentially negative. A 14-point review of systems done. PHYSICAL EXAMINATION: GENERAL: Middle-aged male, overweight. VITAL SIGNS: Blood pressure is 156/92, temperature is 99.2, pulse is 81, respirations are 20. HEENT: Unremarkable. Pupils equal and reactive. NECK: Supple, no lymphadenopathy, no thyromegaly. LUNGS: Clear to auscultation and percussion. Good air entry. CARDIOVASCULAR: S1, S2 heard. No gallop, no murmur, no rub. Apical impulse in left fifth intercostal space and midclavicular line. ABDOMEN: Soft and benign. No hepatosplenomegaly. No guarding, no rigidity. Hernial orifices are normal. EXTREMITIES: Good pedal pulses. No pedal edema. CENTRAL NERVOUS SYSTEM: Alert and oriented x 4, nonfocal exam. PSYCHIATRIC: The patient was nervous and tremulous. LABORATORY DATA: Significant for white count of 5500, hemoglobin of 14.3, hematocrit of 43.8, platelet count is 237,000. Liver function tests are normal. Amylase and lipase are normal. BUN and creatinine is 14 and 1.1. Sodium is 138. Urine is normal. Drug screen positive for cocaine. ASSESSMENT AND PLAN: 1. ETOH withdrawal. [facility] protocol initiated. Medication stabilization program for alcohol initiated. 2. Cocaine withdrawal. The patient initiated on med stabilization program for cocaine. 3. Generalized anxiety disorder. Continue Xanax. 4. Hypertension. Continue clonidine and hydrochlorothiazide. Potassium added 5. Bipolar disorder. Continue Seroquel. 6. Hyperglycemia. Check hemoglobin A1c to make sure the patient does not have diabetes. 7. Medical stabilization program for 1-3 days followed by placement for detoxification. JOB# [id number] VSM/NTS
[2018-03-07] MEDS: CATAPRES PO SCH ×2 (10:25→21:13)
[2018-03-07] MEDS: BABY ASPIRIN PO SCH (10:25)
[2018-03-07] MEDS: HCTZ PO SCH (10:25)
[2018-03-07] MEDS: THERAGRAN Tab PO SCH (10:25)
[2018-03-07] MEDS: VITAMIN B-1 PO SCH (10:25)
[2018-03-07] MEDS: FOLVITE PO SCH (10:26)
[2018-03-07] MEDS ORDERED: APRESOLINE IV ONE (13:00)
[2018-03-07] MEDS ORDERED: NON-FORMULARY (Norvasc 10 MG) PO SCH (18:00)
[2018-03-07] MEDS: NORVASC PO SCH (19:01)
[2018-03-07] MEDS: GLUCOPHAGE PO SCH (21:53)
[2018-03-07] MEDS: DESYREL PO SCH (21:53)
[2018-03-08] MEDS: ATIVAN PO SCH ×5 (00:02→21:36)
[2018-03-08] MEDS: COZAAR PO SCH (10:53)
[2018-03-08] MEDS: BABY ASPIRIN PO SCH (10:54)
[2018-03-08] MEDS: HCTZ PO SCH (10:54)
[2018-03-08] MEDS: VITAMIN B-1 PO SCH (10:54)
[2018-03-08] MEDS: THERAGRAN Tab PO SCH (10:54)
[2018-03-08] MEDS: NORVASC PO SCH (10:54)
[2018-03-08] MEDS: FOLVITE PO SCH (10:54)
[2018-03-08] MEDS: GLUCOPHAGE PO SCH ×2 (10:55→21:36)
[2018-03-08] MEDS: CATAPRES PO SCH ×2 (10:58→21:36)
[2018-03-08 16:05] LABS: Basophils # (Auto) 0.1 K/mm3 (0.0-0.1); Basophils % (Auto) 0.9 % (0.0-1.8); Eosinophils # (Auto) 0.1 K/mm3 (0.0-0.4); Hematocrit 47.8 % (35.5-45.6); Hemoglobin 16.5 gm/dl (11.8-15.2); Lymphocytes # (Auto) 1.6 K/mm3 (1.2-5.4); Lymphocytes % (Auto) 28.8 % (13.4-35.0); Mean Corpuscular HGB Conc 35 % (32-34); Mean Corpuscular Hemoglobin 30 pg (28-32); Mean Corpuscular Volume 87 fl (84-94); Monocytes # (Auto) 0.7 K/mm3 (0.0-0.8); Monocytes % (Auto) 13.1 % (0.0-7.3); Platelet Count 259 K/mm3 (140-440)
[2018-03-08 16:25] LABS: BUN/Creatinine Ratio 15; Blood Urea Nitrogen 17 mg/dL (9-20); Calcium 9.8 mg/dL (8.4-10.2); Hemolysis Index 9
--- NOTE | 2018-03-08 17:59 | Progress Note ---
Assessment and Plan - Patient Problems (1) EtOH dependence Current Visit: Yes Status: Acute Qualifiers: Substance use status: in withdrawal Plan to address problem: CIWA protocol initiated Doing better (2) Cocaine withdrawal Current Visit: Yes Status: Acute Plan to address problem: Gen Anxiety present but better Initiated on Lorazepam taper (3) OXANA (generalized anxiety disorder) Current Visit: No Status: Chronic (4) Polysubstance abuse Current Visit: No Status: Chronic Plan to address problem: Counselled Going to inpatient rehab from here (5) HTN (hypertension) Current Visit: Yes Status: Chronic Qualifiers: Hypertension type: essential hypertension Qualified Code(s): I10 - Essential (primary) hypertension Plan to address problem: Cont antihypertensives (6) T2DM (type 2 diabetes mellitus) Current Visit: Yes Status: Chronic Qualifiers: Diabetes mellitus terminal operator insulin use: without terminal operator use Plan to address problem: Borderline (7) DVT prophylaxis Current Visit: No Status: Acute Subjective Date of service: 03/07/18 Principal diagnosis: Etoh Withdrawal and Cocaine withdrawal Interval history: Sx better but still nervous and anxious Objective - Constitutional Vitals: Vital Signs - 12hr 03/08/18 03/08/18 03/08/18 10:00 10:41 10:53 Temperature 98.6 F Pulse Rate 92 H 85 Respiratory 18 16 Rate Blood Pressure 150/100 150/100 O2 Sat by Pulse 99 91 Oximetry 03/08/18 03/08/18 03/08/18 10:54 10:58 11:00 Temperature Pulse Rate 85 85 101 H Respiratory Rate Blood Pressure 150/100 150/100 O2 Sat by Pulse Oximetry 03/08/18 03/08/18 13:32 15:39 Temperature 98.9 F 98.6 F Pulse Rate 92 H Respiratory 18 18 Rate Blood Pressure 125/73 140/92 O2 Sat by Pulse 92 Oximetry General appearance: Present: no acute distress, well-nourished - EENT Eyes: PERRL, EOM intact ENT: hearing intact, clear oral mucosa Ears: bilateral: normal - Neck Neck: supple, normal ROM - Respiratory Respiratory effort: normal Respiratory: bilateral: CTA - Breasts Breasts: normal - Cardiovascular Rhythm: regular Heart Sounds: Present: S1 & S2. Absent: gallop, rub Extremities: pulses intact, No edema, normal color, Full ROM - Gastrointestinal General gastrointestinal: Present: soft, non-tender, non-distended, normal bowel sounds - Genitourinary Male genitourinary: normal - Integumentary Integumentary: clear, warm, dry - Musculoskeletal Musculoskeletal: 1, strength equal bilaterally - Neurologic Neurologic: moves all extremities - Psychiatric Psychiatric: memory intact, appropriate mood/affect, intact judgment & insight - Labs CBC & Chem 7: 03/08/18 15:16 03/08/18 15:16 Labs: Abnormal lab results 03/08/18 03/08/18 Range/Units 15:16 15:16 RBC 5.50 H (3.65-5.03) M/mm3 Hgb 16.5 H (11.8-15.2) gm/dl Hct 47.8 H (35.5-45.6) % MCHC 35 H (32-34) % Moore % (Auto) 13.1 H (0.0-7.3) % Chloride 97.9 L (98-107) mmol/L Glucose 117 H (75-100) mg/dL
--- NOTE | 2018-03-08 17:59 | Progress Note ---
Subjective Date of service: 03/08/18 Objective - Constitutional Vitals: Vital Signs - 12hr 03/08/18 03/08/18 03/08/18 10:00 10:41 10:53 Temperature 98.6 F Pulse Rate 92 H 85 Respiratory 18 16 Rate Blood Pressure 150/100 150/100 O2 Sat by Pulse 99 91 Oximetry 03/08/18 03/08/18 03/08/18 10:54 10:58 11:00 Temperature Pulse Rate 85 85 101 H Respiratory Rate Blood Pressure 150/100 150/100 O2 Sat by Pulse Oximetry 03/08/18 03/08/18 13:32 15:39 Temperature 98.9 F 98.6 F Pulse Rate 92 H Respiratory 18 18 Rate Blood Pressure 125/73 140/92 O2 Sat by Pulse 92 Oximetry - Labs CBC & Chem 7: 03/08/18 15:16 03/08/18 15:16 Labs: Abnormal lab results 03/08/18 03/08/18 Range/Units 15:16 15:16 RBC 5.50 H (3.65-5.03) M/mm3 Hgb 16.5 H (11.8-15.2) gm/dl Hct 47.8 H (35.5-45.6) % MCHC 35 H (32-34) % Mayes % (Auto) 13.1 H (0.0-7.3) % Chloride 97.9 L (98-107) mmol/L Glucose 117 H (75-100) mg/dL
[2018-03-08] MEDS ORDERED: PERCOCET 5/325 PO SCH (19:00)
[2018-03-08] MEDS ORDERED: XANAX PO SCH (19:00)
[2018-03-08] MEDS: PERCOCET 5/325 PO SCH (21:34)
[2018-03-08] MEDS: XANAX PO SCH ×2 (21:35)
[2018-03-08] MEDS: DESYREL PO SCH (21:36)
[2018-03-09] MEDS: PERCOCET 5/325 PO SCH ×2 (01:15→07:56)
[2018-03-09] MEDS: ATIVAN PO SCH (05:51)
[2018-03-09] MEDS ORDERED: PERCOCET 5/325 PO PRN (07:46)
[2018-03-09] MEDS: XANAX PO SCH ×2 (08:56→15:00)
[2018-03-09] MEDS: FOLVITE PO SCH (10:34)
[2018-03-09] MEDS: VITAMIN B-1 PO SCH (10:34)
[2018-03-09] MEDS: CATAPRES PO SCH (10:34)
[2018-03-09] MEDS: COZAAR PO SCH (10:34)
[2018-03-09] MEDS: THERAGRAN Tab PO SCH (10:34)
[2018-03-09] MEDS: BABY ASPIRIN PO SCH (10:35)
[2018-03-09] MEDS: HCTZ PO SCH (10:35)
[2018-03-09] MEDS: GLUCOPHAGE PO SCH (10:35)
[2018-03-09] MEDS: NORVASC PO SCH (10:35)
[2018-03-09 15:15] VITALS: BP 109/73
--- NOTE | 2018-03-09 16:44 | Progress Note ---
Assessment and Plan - Patient Problems (1) EtOH dependence Current Visit: Yes Status: Acute Qualifiers: Substance use status: in withdrawal Plan to address problem: CIWA protocol initiated Doing better (2) Cocaine withdrawal Current Visit: Yes Status: Acute Plan to address problem: Gen Anxiety present but better Initiated on Lorazepam taper (3) OXANA (generalized anxiety disorder) Current Visit: No Status: Chronic (4) Polysubstance abuse Current Visit: No Status: Chronic Plan to address problem: Counselled Going to inpatient rehab from here (5) HTN (hypertension) Current Visit: Yes Status: Chronic Qualifiers: Hypertension type: essential hypertension Qualified Code(s): I10 - Essential (primary) hypertension Plan to address problem: Cont antihypertensives (6) T2DM (type 2 diabetes mellitus) Current Visit: Yes Status: Chronic Qualifiers: Diabetes mellitus bed bug exterminator insulin use: without bed bug exterminator use Plan to address problem: Borderline (7) DVT prophylaxis Current Visit: No Status: Acute Subjective Date of service: 03/08/18 Principal diagnosis: Etoh Withdrawal and Cocaine withdrawal Interval history: Sx better but still nervous and anxious Objective - Constitutional Vitals: Vital Signs - 12hr 03/09/18 03/09/18 03/09/18 08:35 09:50 10:00 Temperature 97.7 F Pulse Rate 67 80 Respiratory 22 19 Rate Blood Pressure 107/79 139/87 O2 Sat by Pulse 96 95 Oximetry 03/09/18 03/09/18 03/09/18 10:34 10:35 12:54 Temperature 98.3 F Pulse Rate 80 80 88 Respiratory 20 Rate Blood Pressure 139/87 139/87 109/73 O2 Sat by Pulse 94 Oximetry General appearance: Present: no acute distress, well-nourished - EENT Eyes: PERRL, EOM intact ENT: hearing intact, clear oral mucosa Ears: bilateral: normal - Neck Neck: supple, normal ROM - Respiratory Respiratory effort: normal Respiratory: bilateral: CTA - Breasts Breasts: normal - Cardiovascular Rhythm: regular Heart Sounds: Present: S1 & S2. Absent: gallop, rub Extremities: pulses intact, No edema, normal color, Full ROM - Gastrointestinal General gastrointestinal: Present: soft, non-tender, non-distended, normal bowel sounds - Genitourinary Male genitourinary: normal - Integumentary Integumentary: clear, warm, dry - Musculoskeletal Musculoskeletal: 1, strength equal bilaterally - Neurologic Neurologic: moves all extremities - Psychiatric Psychiatric: memory intact, appropriate mood/affect, intact judgment & insight - Labs CBC & Chem 7: 03/08/18 15:16 03/08/18 15:16 Labs: Abnormal lab results 03/09/18 03/09/18 Range/Units 07:17 11:03 POC Glucose 129 H 174 H (70-105)
--- NOTE | 2018-03-09 16:45 | Discharge Summary ---
Providers - Providers Date of Admission: 03/06/18 16:18 Date of discharge: 03/09/18 Attending physician: CARLITOS LOWERY Primary care physician: PAULO OH Hospitalization Hospital course: Assessment and Plan - Patient Problems (1) EtOH dependence Current Visit: Yes Status: Acute Qualifiers: Substance use status: in withdrawal Plan to address problem: CIWA protocol initiated Doing better Patient going to inpatient rehab from here (2) Cocaine withdrawal Current Visit: Yes Status: Acute Plan to address problem: Gen Anxiety present but better Initiated on Lorazepam taper (3) OXANA (generalized anxiety disorder) Current Visit: No Status: Chronic (4) Polysubstance abuse Current Visit: No Status: Chronic Plan to address problem: Counselled Going to inpatient rehab from here (5) HTN (hypertension) Current Visit: Yes Status: Chronic Qualifiers: Hypertension type: essential hypertension Qualified Code(s): I10 - Essential (primary) hypertension Plan to address problem: Cont antihypertensives (6) T2DM (type 2 diabetes mellitus) Current Visit: Yes Status: Chronic Qualifiers: Diabetes mellitus pickle pumper insulin use: without fpc use Plan to address problem: Borderline (7) DVT prophylaxis Current Visit: No Status: Acute Disposition: DC-01 TO HOME OR SELFCARE Core Measure Documentation - Palliative Care Palliative Care/ Comfort Measures: Not Applicable - Core Measures Any of the following diagnoses?: none Exam - Constitutional Vitals: Temp Pulse Resp BP Pulse Ox 98.3 F 88 20 109/73 94 03/09/18 12:54 03/09/18 12:54 03/09/18 12:54 03/09/18 12:54 03/09/18 12:54 General appearance: Present: no acute distress, well-nourished - EENT Eyes: Present: PERRL ENT: hearing intact, clear oral mucosa - Neck Neck: Present: supple, normal ROM - Respiratory Respiratory effort: normal Respiratory: bilateral: CTA - Cardiovascular Heart rate: 78 Rhythm: regular Heart Sounds: Present: S1 & S2. Absent: rub, click - Extremities Extremities: pulses symmetrical, No edema Peripheral Pulses: within normal limits - Abdominal General gastrointestinal: Present: soft, non-tender, non-distended, normal bowel sounds Male genitourinary: Present: normal - Integumentary Integumentary: Present: clear, warm, dry - Musculoskeletal Musculoskeletal: gait normal, strength equal bilaterally - Psychiatric Psychiatric: appropriate mood/affect, intact judgment & insight - Neurologic Neurologic: CNII-XII intact, moves all extremities Plan Activity: no restrictions Diet: low salt Follow up with: PAULO OH JR, MD [Primary Care Provider] - 7 Days
== END 2018-03-09 17:25 | disposition home or self-care (01) | DRG 898 ==
LOC: UNDOADMIN 16:06 → 2B-ACE 16:06 → MSU 16:18
PROVIDERS: ADMIT Internal Medicine; ATTEND Internal Medicine
DX: F10.239 Alcohol dependence with withdrawal, unspecified (principal); F14.23 Cocaine dependence with withdrawal; I10 Essential (primary) hypertension; F31.9 Bipolar disorder, unspecified; G89.29 Other chronic pain; E11.65 Type 2 diabetes mellitus with hyperglycemia; F41.1 Generalized anxiety disorder; Z71.51 Drug abuse counseling and surveillance of drug abuser; Z82.49 Family history of ischemic heart disease and other diseases of the circulatory system
CPT/HCPCS: 36415; 80048; 80053; 80307; 80320; 81001; 82150; 82962; 83690; 85025; 85027; 85610; 93005; 93010; G0480; J0360; J3410; J3411; J7030; Q0177

== ENCOUNTER 2018-05-11 14:35 | Inpatient (IN) | payer MEDICAID ==
[2018-05-11] MEDS ORDERED: ATIVAN IV ONE ×2 (14:58→17:15)
[2018-05-11] MEDS ORDERED: ALUM-MAG HYDROX-SIMETH 200-200-20MG/5ML PO PRN (14:58)
[2018-05-11] MEDS ORDERED: DULCOLAX PR PRN (14:58)
[2018-05-11] MEDS ORDERED: HABITROL TD PRN (14:58)
[2018-05-11] MEDS ORDERED: ZOFRAN IV PRN (14:58)
[2018-05-11] MEDS ORDERED: SENOKOT PO PRN (14:58)
[2018-05-11] MEDS ORDERED: IMODIUM PO PRN (14:58)
[2018-05-11] MEDS ORDERED: TYLENOL PO PRN ×2 (14:58→22:16)
[2018-05-11] MEDS ORDERED: ROBAXIN PO PRN (15:12)
[2018-05-11] MEDS ORDERED: ATIVAN IV PRN ×2 (15:12→15:20)
[2018-05-11] MEDS ORDERED: BENTYL PO PRN (15:12)
[2018-05-11] MEDS ORDERED: REQUIP PO PRN (15:23)
[2018-05-11] MEDS ORDERED: VISTARIL PO PRN ×2 (15:23→22:16)
[2018-05-11] MEDS ORDERED: VISTARIL IM PRN (15:23)
[2018-05-11 16:14] LABS: Bilirubin,Urine NEG (Negative); Blood,Urine NEG (Negative); Color,Urine Yellow (Yellow); Mucus,Urine 1+ /HPF; RBC,Urine < 1.0 /HPF (0.0-6.0); WBC,Urine < 1.0 /HPF (0.0-6.0)
[2018-05-11 16:41] LABS: Amphetamine Screen,Urine PRESUMPTIVE NEGATIVE; Benzodiazepines Screen,Urine PRESUMPTIVE NEGATIVE; Cannabinoid Screen,Urine PRESUMPTIVE NEGATIVE; Methadone Screen,Urine PRESUMPTIVE NEGATIVE; Opiate Screen,Urine PRESUMPTIVE NEGATIVE
[2018-05-11 16:58] LABS: Cocaine Screen,Urine PRESUMPTIVE POSITIVE
[2018-05-11] MEDS ORDERED: VITAMIN B-1 100 MG, FOLVITE 1 MG, INFUVITE 10 ML in LACTATED RINGERS 1,000 ML IV ONE (17:00)
[2018-05-11] MEDS: LOVENOX SUB-Q SCH (17:25)
[2018-05-11] MEDS: CATAPRES PO SCH ×2 (17:32→21:41)
[2018-05-11] MEDS: ATIVAN PO SCH ×3 (17:33→21:42)
[2018-05-11 18:44] LABS: Hematocrit 39.8 % (35.5-45.6); Hemoglobin 13.6 gm/dl (11.8-15.2); Mean Corpuscular HGB Conc 34 % (32-34); Mean Corpuscular Hemoglobin 30 pg (28-32); Mean Corpuscular Volume 87 fl (84-94); Platelet Count 222 K/mm3 (140-440); Red Cell Distribution Width 14.8 % (13.2-15.2)
[2018-05-11 18:57] LABS: INR 0.9 (0.87-1.13)
[2018-05-11 19:05] LABS: Alanine Aminotransferase 27 units/L (7-56); BUN/Creatinine Ratio 13; Blood Urea Nitrogen 16 mg/dL (9-20); Calcium 8.7 mg/dL (8.4-10.2); Hemolysis Index 6
[2018-05-11] MEDS: DESYREL PO SCH (21:42)
--- NOTE | 2018-05-11 21:46 | History and Physical Report ---
History of Present Illness Date of examination: 05/11/18 Date of admission: 05/11/18 15:29 Chief complaint: Chief complaint: Patient relapsed on EtOH and cocaine since 05/09/2018 . History of present illness: 57-year-old black male with history of hypertension and borderline diabetes recently discharged on 03/09/2018 after being treated for EtOH withdrawal and cocaine withdrawal was doing well for the last 2 months. Patient relapsed on day before yesterday--2/5 vodka and 1/4 [place] Cognac and also snorted cocaine 2 days in a row. He did 3 g of cocaine on Tuesday and Tuesday. Today is . Wants help with relapse. Patient has withdrawal symptoms including nausea vomiting diarrhea dehydration. Patient also has blackouts. Not suicidal or homicidal. Patient also has abdominal complaints including abdominal cramps. Also constant nausea and frequent dry heaves and Vomiting. Hypertension. No muscle aches. No gross worse compounds. No nasal congestion. Has restlessness. And moderate amount of tremors. Obvious sweating present. Patient has a total score of 15 on CINA scale for withdrawal symptoms. Past History Past Medical History: diabetes, hypertension Past Surgical History: No surgical history Social history: smoking, alcohol abuse, other (SNORTS cocaine) Family history: hypertension Medications and Allergies Allergies Allergy/AdvReac Type Severity Reaction Status Date / Time Penicillins Allergy Hives Verified 12/28/15 22:38 tomato Allergy Hives Verified 12/28/15 22:38 venom-wasp [wasp venom] Allergy Hives Verified 12/28/15 22:38 Home Medications Medication Instructions Recorded Confirmed Last Taken Type Acetaminophen [Acetaminophen TAB] 325 mg PO Q4H PRN #30 tablet 02/15/18 Unknown Rx Zolpidem [Ambien] 10 mg PO QHS PRN #4 tablet 02/15/18 05/11/18 Unknown Rx oxyCODONE /ACETAMINOPHEN [Percocet 1 tab PO Q6H PRN #4 tablet 02/15/18 05/11/18 Unknown Rx 5/325 mg] QUEtiapine [SEROquel] 25 mg PO QHS 03/06/18 05/11/18 Unknown History metFORMIN [Glucophage] 500 mg PO BID 03/07/18 05/11/18 Unknown History ALPRAZolam [Xanax TAB] 1 mg PO TID PRN #45 tablet 03/09/18 05/11/18 Unknown Rx Aspirin [Aspirin BABY CHEW TAB] 81 mg PO QDAY #30 tab.chew 03/09/18 05/11/18 Unknown Rx Folic Acid [Folvite] 1 mg PO QDAY #30 tablet 03/09/18 05/11/18 Unknown Rx Oxycodone HCl/Acetaminophen 1 each PO Q6HR PRN #40 tablet 03/09/18 05/11/18 Unknown Rx [Percocet 7.5/325 mg] amLODIPine [Norvasc] 10 mg PO DAILY #30 tablet 03/09/18 05/11/18 Unknown Rx cloNIDine [Catapres] 0.1 mg PO Q12HR #60 tablet 03/09/18 05/11/18 Unknown Rx hydrOXYzine PAMOATE [Vistaril] 50 mg PO Q6H PRN #60 capsule 03/09/18 05/11/18 Unknown Rx Hydrochlorothiazide [HCTZ] 25 mg PO QDAY 05/11/18 05/11/18 Unknown History Active Meds: Active Medications Acetaminophen (Tylenol) 500 mg PO Q4H PRN PRN Reason: Temp > 100.4 Al Hydrox/Mg Hydrox/Simethicone (Alum-Mag Hydrox-Simeth [phone]/5ml) 30 ml PO Q6H PRN PRN Reason: Dyspepsia Bisacodyl (Dulcolax) 10 mg MD QDAY PRN PRN Reason: Bowel Movement Clonidine HCl (Catapres) 0.1 mg PO Q4H [facility] Last Admin: 05/11/18 21:41 Dose: 0.1 mg Dicyclomine HCl (Bentyl) 20 mg PO Q6H PRN PRN Reason: Abdominal Discomfort Enoxaparin Sodium (Lovenox) 40 mg SUB-Q QDAY [facility] Last Admin: 05/11/18 17:25 Dose: 40 mg Folic Acid (Folvite) 1 mg PO QDAY [facility] Hydroxyzine HCl (Vistaril) 50 mg IM Q6H PRN PRN Reason: Breakthrough Anxiety Hydroxyzine Pamoate (Vistaril) 50 mg PO Q6H PRN PRN Reason: Anxiety Mild Sodium Chloride (Nacl 0.9% 1000 Ml) 1,000 mls @ 100 mls/hr IV DIRECT JOSHUA Thiamine HCl 100 mg/ Folic Acid 1 mg/ Multivitamins/Minerals 10 ml/ Lactated Ringer's 1,011.2 mls @ 150 mls/hr IV ONCE ONE Stop: 05/11/18 23:44 Last Admin: 05/11/18 17:26 Dose: 150 mls/hr Loperamide HCl (Imodium) 2 mg PO Q8H PRN PRN Reason: Diarrhea Lorazepam (Ativan) 1 mg IV Q4H PRN PRN Reason: Anxiety Severe Lorazepam (Ativan) 1 mg PO Q4HR [facility] Stop: 05/12/18 10:01 Last Admin: 05/11/18 21:42 Dose: 1 mg Lorazepam (Ativan) 2 mg IV PRN PRN PRN Reason: Seizures Lorazepam (Ativan) 1 mg PO Q6HR [facility] Stop: 05/13/18 06:01 Lorazepam (Ativan) 1 mg PO Q8HR [facility] Stop: 05/14/18 06:01 Methocarbamol (Robaxin) 750 mg PO Q6H PRN PRN Reason: Muscle Ache Multivitamins (Theragran Tab) 1 each PO QDAY [facility] Nicotine (Habitrol) 21 mg TD QDAY PRN PRN Reason: Smoking Cessation Ondansetron HCl (Zofran) 4 mg IV Q6H PRN PRN Reason: Moderat/Severe Nausea/Vomiting Ropinirole HCl (Requip) 0.5 mg PO Q12H PRN PRN Reason: Restless Legs Senna (Senokot) 17.2 mg PO QHS PRN PRN Reason: Constipation Thiamine HCl (Vitamin B-1) 100 mg PO QDAY [facility] Trazodone HCl (Desyrel) 50 mg PO QHS [facility] Last Admin: 05/11/18 21:42 Dose: 50 mg Review of Systems All systems: negative Constitutional: sweats, night sweats, anorexia, fatigue, weakness, malaise, poor appetite, chronic pain, no weight loss, no weight gain, no fever Ears, nose, mouth and throat: no dysphagia, no hoarseness, no sore throat, no swelling in mouth, no swelling in throat, no odynophagia Cardiovascular: no chest pain, no orthopnea, no palpitations, no rapid/ irregular heart beat, no edema, no syncope, no lightheadedness, no shortness of breath Respiratory: no cough, no cough with sputum, no excessive sputum, no hemoptysis , no shortness of breath, no dyspnea on exertion Gastrointestinal: abdominal pain, nausea, vomiting, diarrhea Genitourinary Male: no dysuria, no hematuria, no flank pain, no discharge Rectal: no pain Musculoskeletal: no neck stiffness, no neck pain, no shooting arm pain, no arm numbness/tingling, no low back pain, no shooting leg pain, no leg numbness/ tingling, no redness of joints Integumentary: no rash, no pruritis, no redness, no sores, no wounds, no jaundice, no boils, no blisters Neurological: weakness, tremors, no seizures, no syncope Psychiatric: anxiety, change in sleep habits, insomnia, change in appetite, disorientation, irritability, no anhedonia, no difficulties concentrating, no confusion Endocrine: excessive thirst, excessive sweating, no cold intolerance, no heat intolerance, no polyphagia Hematologic/Lymphatic: no easy bruising, no easy bleeding Allergic/Immunologic: no urticaria, no allergic rhinitis, no wheezing Exam - Constitutional Vitals: Temp Pulse Resp BP Pulse Ox 98.6 F 81 20 170/87 98 05/11/18 20:32 05/11/18 21:41 05/11/18 20:32 05/11/18 21:41 05/11/18 20:32 General appearance: Present: no acute distress, well-nourished - EENT Eyes: Present: PERRL ENT: hearing intact, clear oral mucosa - Neck Neck: Present: supple, normal ROM - Respiratory Respiratory effort: normal Respiratory: bilateral: CTA - Cardiovascular Heart rate: 88 Rhythm: regular Heart Sounds: Present: S1 & S2. Absent: rub, click - Extremities Extremities: no ischemia, pulses intact, pulses symmetrical, No edema Peripheral Pulses: within normal limits - Abdominal General gastrointestinal: Present: soft, non-tender, non-distended, normal bowel sounds Male genitourinary: Present: normal - Rectal Rectal Exam: deferred - Integumentary Integumentary: Present: clear, warm, dry - Musculoskeletal Musculoskeletal: gait normal, strength equal bilaterally - Psychiatric Psychiatric: appropriate mood/affect, intact judgment & insight - Neurologic Neurologic: CNII-XII intact, moves all extremities - Allied Health Allied health notes reviewed: nursing, case management Results - Labs CBC & Chem 7: 05/11/18 18:17 05/11/18 18:17 Labs: Laboratory Last Values WBC 4.0 K/mm3 (4.5-11.0) L 05/11/18 18:17 RBC 4.60 M/mm3 (3.65-5.03) 05/11/18 18:17 Hgb 13.6 gm/dl (11.8-15.2) 05/11/18 18:17 Hct 39.8 % (35.5-45.6) 05/11/18 18:17 MCV 87 fl (84-94) 05/11/18 18:17 MCH 30 pg (28-32) 05/11/18 18:17 MCHC 34 % (32-34) 05/11/18 18:17 RDW 14.8 % (13.2-15.2) 05/11/18 18:17 Plt Count 222 K/mm3 (140-440) 05/11/18 18:17 PT 12.6 Sec. (12.2-14.9) 05/11/18 18:17 INR 0.90 (0.87-1.13) 05/11/18 18:17 Sodium 135 mmol/L (137-145) L 05/11/18 18:17 Potassium 3.8 mmol/L (3.6-5.0) 05/11/18 18:17 Chloride 98.7 mmol/L (98-107) 05/11/18 18:17 Carbon Dioxide 24 mmol/L (22-30) 05/11/18 18:17 Anion Gap 16 mmol/L 05/11/18 18:17 BUN 16 mg/dL (9-20) 05/11/18 18:17 Creatinine 1.2 mg/dL (0.8-1.5) 05/11/18 18:17 Estimated GFR > 60 ml/min 05/11/18 18:17 BUN/Creatinine Ratio 13 % 05/11/18 18:17 Glucose 110 mg/dL (75-100) H 05/11/18 18:17 Calcium 8.7 mg/dL (8.4-10.2) 05/11/18 18:17 Total Bilirubin 0.30 mg/dL (0.1-1.2) 05/11/18 18:17 AST 31 units/L (5-40) 05/11/18 18:17 ALT 27 units/L (7-56) 05/11/18 18:17 Alkaline Phosphatase 97 units/L (35-129) 05/11/18 18:17 Total Protein 6.6 g/dL (6.3-8.2) 05/11/18 18:17 Albumin 4.0 g/dL (3.9-5) 05/11/18 18:17 Albumin/Globulin Ratio 1.5 % 05/11/18 18:17 Amylase 67 units/L (27-131) 05/11/18 18:17 Lipase 23 units/L (13-60) 05/11/18 18:17 Urine Color Yellow (Yellow) 05/11/18 Unknown Urine Turbidity Clear (Clear) 05/11/18 Unknown Urine pH 5.0 (5.0-7.0) 05/11/18 Unknown Ur Specific [place] 1.030 (1.003-1.030) 05/11/18 Unknown Urine Protein 30 mg/dl mg/dL (Negative) 05/11/18 Unknown Urine Glucose (UA) Neg mg/dL (Negative) 05/11/18 Unknown Urine Ketones Neg mg/dL (Negative) 05/11/18 Unknown Urine Blood Neg (Negative) 05/11/18 Unknown Urine Nitrite Neg (Negative) 05/11/18 Unknown Urine Bilirubin Neg (Negative) 05/11/18 Unknown Urine Urobilinogen 2.0 mg/dL (<2.0) 05/11/18 Unknown Ur Leukocyte Esterase Neg (Negative) 05/11/18 Unknown Urine WBC (Auto) < 1.0 /HPF (0.0-6.0) 05/11/18 Unknown Urine RBC (Auto) < 1.0 /HPF (0.0-6.0) 05/11/18 Unknown Urine Mucus 1+ /HPF 05/11/18 Unknown Urine Opiates Screen Presumptive negative 05/11/18 Unknown Urine Methadone Screen Presumptive negative 05/11/18 Unknown Ur Barbiturates Screen Presumptive negative 05/11/18 Unknown Ur Phencyclidine Scrn Presumptive negative 05/11/18 Unknown Ur Amphetamines Screen Presumptive negative 05/11/18 Unknown U Benzodiazepines Scrn Presumptive negative 05/11/18 Unknown Urine Cocaine Screen Presumptive positive 05/11/18 Unknown U Marijuana (THC) Screen Presumptive negative 05/11/18 Unknown Drugs of Abuse Note Disclamer 05/11/18 Unknown Plasma/Serum Alcohol < 0.01 % (0-0.07) 05/11/18 18:17 Short CBC 05/11/18 05/11/18 05/11/18 Range/Units 18:17 18:17 18:17 WBC 4.0 L (4.5-11.0) K/mm3 RBC 4.60 (3.65-5.03) M/mm3 Hgb 13.6 (11.8-15.2) gm/dl Hct 39.8 (35.5-45.6) % MCV 87 (84-94) fl MCH 30 (28-32) pg MCHC 34 (32-34) % RDW 14.8 (13.2-15.2) % Plt Count 222 (140-440) K/mm3 PT 12.6 (12.2-14.9) Sec. INR 0.90 (0.87-1.13) Sodium 135 L (137-145) mmol/L Potassium 3.8 (3.6-5.0) mmol/L Chloride 98.7 (98-107) mmol/L Carbon Dioxide 24 (22-30) mmol/L Anion Gap 16 mmol/L BUN 16 (9-20) mg/dL Creatinine 1.2 (0.8-1.5) mg/dL Estimated GFR > 60 ml/min BUN/Creatinine Ratio 13 % Glucose 110 H (75-100) mg/dL Calcium 8.7 (8.4-10.2) mg/dL Total Bilirubin 0.30 (0.1-1.2) mg/dL AST 31 (5-40) units/L ALT 27 (7-56) units/L Alkaline Phosphatase 97 (35-129) units/L Total Protein 6.6 (6.3-8.2) g/dL Albumin 4.0 (3.9-5) g/dL Albumin/Globulin Ratio 1.5 % Amylase (27-131) units/L Lipase (13-60) units/L Urine Color (Yellow) Urine Turbidity (Clear) Urine pH (5.0-7.0) Ur Specific [place] (1.003-1.030) Urine Protein (Negative) mg/dL Urine Glucose (UA) (Negative) mg/dL Urine Ketones (Negative) mg/dL Urine Blood (Negative) Urine Nitrite (Negative) Urine Bilirubin (Negative) Urine Urobilinogen (<2.0) mg/dL Ur Leukocyte Esterase (Negative) Urine WBC (Auto) (0.0-6.0) /HPF Urine RBC (Auto) (0.0-6.0) /HPF Urine Mucus /HPF Urine Opiates Screen Urine Methadone Screen Ur Barbiturates Screen Ur Phencyclidine Scrn Ur Amphetamines Screen U Benzodiazepines Scrn Urine Cocaine Screen U Marijuana (THC) Screen Drugs of Abuse Note Plasma/Serum Alcohol (0-0.07) % 05/11/18 05/11/18 05/11/18 Range/Units 18:17 18:17 18:17 WBC (4.5-11.0) K/mm3 RBC (3.65-5.03) M/mm3 Hgb (11.8-15.2) gm/dl Hct (35.5-45.6) % MCV (84-94) fl MCH (28-32) pg MCHC (32-34) % RDW (13.2-15.2) % Plt Count (140-440) K/mm3 PT (12.2-14.9) Sec. INR (0.87-1.13) Sodium (137-145) mmol/L Potassium (3.6-5.0) mmol/L Chloride (98-107) mmol/L Carbon Dioxide (22-30) mmol/L Anion Gap mmol/L BUN (9-20) mg/dL Creatinine (0.8-1.5) mg/dL Estimated GFR ml/min BUN/Creatinine Ratio % Glucose (75-100) mg/dL Calcium (8.4-10.2) mg/dL Total Bilirubin (0.1-1.2) mg/dL AST (5-40) units/L ALT (7-56) units/L Alkaline Phosphatase (35-129) units/L Total Protein (6.3-8.2) g/dL Albumin (3.9-5) g/dL Albumin/Globulin Ratio % Amylase 67 (27-131) units/L Lipase 23 (13-60) units/L Urine Color (Yellow) Urine Turbidity (Clear) Urine pH (5.0-7.0) Ur Specific [place] (1.003-1.030) Urine Protein (Negative) mg/dL Urine Glucose (UA) (Negative) mg/dL Urine Ketones (Negative) mg/dL Urine Blood (Negative) Urine Nitrite (Negative) Urine Bilirubin (Negative) Urine Urobilinogen (<2.0) mg/dL Ur Leukocyte Esterase (Negative) Urine WBC (Auto) (0.0-6.0) /HPF Urine RBC (Auto) (0.0-6.0) /HPF Urine Mucus /HPF Urine Opiates Screen Urine Methadone Screen Ur Barbiturates Screen Ur Phencyclidine Scrn Ur Amphetamines Screen U Benzodiazepines Scrn Urine Cocaine Screen U Marijuana (THC) Screen Drugs of Abuse Note Plasma/Serum Alcohol < 0.01 (0-0.07) % 05/11/18 05/11/18 Range/Units Unknown Unknown WBC (4.5-11.0) K/mm3 RBC (3.65-5.03) M/mm3 Hgb (11.8-15.2) gm/dl Hct (35.5-45.6) % MCV (84-94) fl MCH (28-32) pg MCHC (32-34) % RDW (13.2-15.2) % Plt Count (140-440) K/mm3 PT (12.2-14.9) Sec. INR (0.87-1.13) Sodium (137-145) mmol/L Potassium (3.6-5.0) mmol/L Chloride (98-107) mmol/L Carbon Dioxide (22-30) mmol/L Anion Gap mmol/L BUN (9-20) mg/dL Creatinine (0.8-1.5) mg/dL Estimated GFR ml/min BUN/Creatinine Ratio % Glucose (75-100) mg/dL Calcium (8.4-10.2) mg/dL Total Bilirubin (0.1-1.2) mg/dL AST (5-40) units/L ALT (7-56) units/L Alkaline Phosphatase (35-129) units/L Total Protein (6.3-8.2) g/dL Albumin (3.9-5) g/dL Albumin/Globulin Ratio % Amylase (27-131) units/L Lipase (13-60) units/L Urine Color Yellow (Yellow) Urine Turbidity Clear (Clear) Urine pH 5.0 (5.0-7.0) Ur Specific [place] 1.030 (1.003-1.030) Urine Protein 30 mg/dl (Negative) mg/dL Urine Glucose (UA) Neg (Negative) mg/dL Urine Ketones Neg (Negative) mg/dL Urine Blood Neg (Negative) Urine Nitrite Neg (Negative) Urine Bilirubin Neg (Negative) Urine Urobilinogen 2.0 (<2.0) mg/dL Ur Leukocyte Esterase Neg (Negative) Urine WBC (Auto) < 1.0 (0.0-6.0) /HPF Urine RBC (Auto) < 1.0 (0.0-6.0) /HPF Urine Mucus 1+ /HPF Urine Opiates Screen Presumptive negative Urine Methadone Screen Presumptive negative Ur Barbiturates Screen Presumptive negative Ur Phencyclidine Scrn Presumptive negative Ur Amphetamines Screen Presumptive negative U Benzodiazepines Scrn Presumptive negative Urine Cocaine Screen Presumptive positive U Marijuana (THC) Screen Presumptive negative Drugs of Abuse Note Disclamer Plasma/Serum Alcohol (0-0.07) % BMP 05/11/18 18:17 Sodium 135 L Potassium 3.8 Chloride 98.7 Carbon Dioxide 24 BUN 16 Creatinine 1.2 Glucose 110 H Calcium 8.7 Liver Function 05/11/18 Range/Units 18:17 Total Bilirubin 0.30 (0.1-1.2) mg/dL AST 31 (5-40) units/L ALT 27 (7-56) units/L Alkaline Phosphatase 97 (35-129) units/L Albumin 4.0 (3.9-5) g/dL Urine 05/11/18 Range/Units Unknown Urine Color Yellow (Yellow) Urine pH 5.0 (5.0-7.0) Ur Specific [place] 1.030 (1.003-1.030) Urine Protein 30 mg/dl (Negative) mg/dL Urine Glucose (UA) Neg (Negative) mg/dL Assessment and Plan Advance Directives: Yes (full code) VTE prophylaxis?: Chemical ( no) Plan of care discussed with patient/family: Yes ( no wheezing full code) - Patient Problems (1) EtOH dependence Current Visit: Yes Status: Acute Qualifiers: Substance use status: in withdrawal Plan to address problem: Patient in EtOH withdrawal. Patient initiated on IV fluids and Ativan multivitamins thiamine folic acid trazodone Imodium and Zofran when necessary. Patient also mentions on telemetry clonidine 0.1 every 4 hours ropinirole and hydroxyzine. Patient was initiated on banana bag methocarbamol dicyclomine and lorazepam 1 mg IV push every 4 hours when necessary for severe anxiety then option to lorazepam 1 mg by mouth every 4 hours for 6 doses followed by 1 mg orally every 6 hours for 4 doses and then 1 mg orally every 8 hours for 3 doses. (2) Cocaine dependence Current Visit: Yes Status: Acute Qualifiers: Substance use status: in withdrawal Qualified Code(s): F14.23 - Cocaine dependence with withdrawal Plan to address problem: Patient initiated on Ativan clonidine ropinirole and hydroxyzine (3) Bipolar disorder Current Visit: No Status: Chronic Qualifiers: Active/Remission status: in full remission Plan to address problem: Continue Seroquel (4) Hypertension Current Visit: No Status: Chronic Qualifiers: Hypertension type: essential hypertension Qualified Code(s): I10 - Essential (primary) hypertension Plan to address problem: Continue antihypertensives (5) T2DM (type 2 diabetes mellitus) Current Visit: Yes Status: Chronic Qualifiers: Diabetes mellitus watermaster insulin use: without watermaster use Plan to address problem: Continue metformin in coverage Check hemoglobin A1c (6) Generalized anxiety disorder Current Visit: Yes Status: Chronic Plan to address problem: Continue Xanax 2 mg daily when necessary (7) DVT prophylaxis Current Visit: Yes Status: Acute Plan to address problem: On heparin/Lovenox subcutaneous daily
[2018-05-11] MEDS ORDERED: XANAX PO PRN (22:16)
[2018-05-11] MEDS ORDERED: NON-FORMULARY (Oxycodone Hcl/Acetaminophen [Percocet 7.5/325 Mg] 1 EACH) PO PRN (22:16)
[2018-05-11] MEDS ORDERED: AMBIEN PO PRN (22:16)
[2018-05-11] MEDS: NACL 0.9% 1000 ML 1,000 ML IV SCH (23:48)
[2018-05-12] MEDS: CATAPRES PO SCH ×8 (00:41→22:00)
[2018-05-12] MEDS: ATIVAN PO SCH ×5 (01:23→18:31)
[2018-05-12 05:10] LABS: Hematocrit 39.3 % (35.5-45.6); Hemoglobin 13.3 gm/dl (11.8-15.2); Mean Corpuscular HGB Conc 34 % (32-34); Mean Corpuscular Hemoglobin 30 pg (28-32); Mean Corpuscular Volume 87 fl (84-94); Platelet Count 220 K/mm3 (140-440); Red Cell Distribution Width 14.9 % (13.2-15.2)
[2018-05-12 05:31] LABS: Alanine Aminotransferase 22 units/L (7-56); Albumin 3.6 g/dL (3.9-5); BUN/Creatinine Ratio 10; Blood Urea Nitrogen 12 mg/dL (9-20); Calcium 8.4 mg/dL (8.4-10.2); Hemolysis Index 6
[2018-05-12 06:06] LABS: RBC Morphology Normal; Total Cells Counted 100
[2018-05-12] MEDS: HumaLOG SUB-Q SCH ×3 (08:27→16:33)
[2018-05-12] MEDS: LOVENOX SUB-Q SCH (09:07)
[2018-05-12] MEDS: GLUCOPHAGE PO SCH ×3 (09:08→22:23)
[2018-05-12] MEDS: FOLVITE PO SCH ×2 (09:08→09:10)
[2018-05-12] MEDS: NORVASC PO SCH (09:08)
[2018-05-12] MEDS: THERAGRAN Tab PO SCH (09:08)
[2018-05-12] MEDS: BABY ASPIRIN PO SCH (09:08)
[2018-05-12] MEDS: HCTZ PO SCH (09:08)
[2018-05-12] MEDS: VITAMIN B-1 PO SCH (09:09)
[2018-05-12] MEDS ORDERED: ROXICODONE PO PRN (10:21)
[2018-05-12] MEDS: NACL 0.9% 1000 ML 1,000 ML IV SCH (10:36)
[2018-05-12] MEDS: PERCOCET 5/325 PO PRN (19:58)
--- NOTE | 2018-05-12 21:43 | Progress Note ---
Assessment and Plan Assessment and plan: 57-year-old black male with history of hypertension and borderline diabetes recently discharged on 03/09/2018 after being treated for EtOH withdrawal and cocaine withdrawal was doing well for the last 2 months. Patient relapsed on day before yesterday--2/5 vodka and 1/4 [place] Cogn[place] and also snorted cocaine 2 days in a row. He did 3 g of cocaine on Tuesday and Tuesday. Today is . Wants help with relapse. Patient has withdrawal symptoms including nausea vomiting diarrhea dehydration. Patient also has blackouts. Not suicidal or homicidal. Patient also has abdominal complaints including abdominal cramps. Also constant nausea and frequent dry heaves and Vomiting. Hypertension. No muscle aches. No gross worse compounds. No nasal congestion. Has restlessness. And moderate amount of tremors. Obvious sweating present. Patient has a total score of 15 on CINA scale for withdrawal symptoms. (1) EtOH dependence Current Visit: Yes Status: Acute Qualifiers: Substance use status: in withdrawal Plan to address problem: Patient in EtOH withdrawal. Continue on IV fluids and Ativan multivitamins thiamine folic acid trazodone Imodium and Zofran when necessary. Non compliant with home medications, resume clonidine 0.1 every 4 hours continue on banana bag methocarbamol dicyclomine and lorazepam 1 mg IV push every 4 hours when necessary for severe anxiety then option to lorazepam 1 mg by mouth every 4 hours for 6 doses followed by 1 mg orally every 6 hours for 4 doses and then 1 mg orally every 8 hours for 3 doses. titrate per [facility] protocol (2) Cocaine dependence Current Visit: Yes Status: Acute Qualifiers: Substance use status: in withdrawal Qualified Code(s): F14.23 - Cocaine dependence with withdrawal Plan to address problem: Patient initiated on Ativan clonidine ropinirole and hydroxyzine (3) Bipolar disorder Current Visit: No Status: Chronic Qualifiers: Active/Remission status: in full remission Plan to address problem: Continue Seroquel (4) Hypertension Current Visit: No Status: Chronic Qualifiers: Hypertension type: essential hypertension Qualified Code(s): I10 - Essential (primary) hypertension Plan to address problem: Continue antihypertensives (5) T2DM (type 2 diabetes mellitus) Current Visit: Yes Status: Chronic Qualifiers: Diabetes mellitus terminologist insulin use: without terminologist use Plan to address problem: Continue metformin in coverage Check hemoglobin A1c (6) Generalized anxiety disorder Current Visit: Yes Status: Chronic Plan to address problem: Continue Xanax 2 mg daily when necessary (7) DVT prophylaxis Current Visit: Yes Status: Acute Plan to address problem: On heparin/Lovenox subcutaneous daily History Interval history: Patient seen and examined, still with some withdrawal symptoms but with mild improvement. Per patient has not been complaint with his blood pressure medication. Hospitalist Physical - Constitutional Vitals: Temp Pulse Resp BP Pulse Ox 98.8 F 96 H 20 144/93 98 05/12/18 16:00 05/12/18 19:58 05/12/18 16:00 05/12/18 19:58 05/12/18 16:00 General appearance: Present: no acute distress, well-nourished, obese - EENT Eyes: Present: PERRL ENT: hearing intact, clear oral mucosa, dentition normal - Neck Neck: Present: supple, normal ROM - Respiratory Respiratory effort: normal Respiratory: bilateral: CTA - Cardiovascular Rhythm: regular Heart Sounds: Present: S1 & S2. Absent: systolic murmur - Extremities Extremities: no ischemia, pulses intact, No edema Peripheral Pulses: within normal limits - Abdominal General gastrointestinal: soft, non-tender, non-distended, normal bowel sounds - Integumentary Integumentary: Present: clear, warm, dry - Psychiatric Psychiatric: appropriate mood/affect - Neurologic Neurologic: CNII-XII intact, focal deficits - Allied Health Allied health notes reviewed: nursing Results - Labs CBC & Chem 7: 05/12/18 04:47 05/12/18 04:47 Labs: Laboratory Last Values WBC 3.7 K/mm3 (4.5-11.0) L 05/12/18 04:47 RBC 4.50 M/mm3 (3.65-5.03) 05/12/18 04:47 Hgb 13.3 gm/dl (11.8-15.2) 05/12/18 04:47 Hct 39.3 % (35.5-45.6) 05/12/18 04:47 MCV 87 fl (84-94) 05/12/18 04:47 MCH 30 pg (28-32) 05/12/18 04:47 MCHC 34 % (32-34) 05/12/18 04:47 RDW 14.9 % (13.2-15.2) 05/12/18 04:47 Plt Count 220 K/mm3 (140-440) 05/12/18 04:47 [place] % (Auto) Bulk Clerk 05/12/18 04:47 Add Manual Diff Complete 05/12/18 04:47 Total Counted 100 05/12/18 04:47 Seg Neuts % (Manual) 53.0 % (40.0-70.0) 05/12/18 04:47 Band Neutrophils % 1.0 % 05/12/18 04:47 Lymphocytes % (Manual) 34.0 % (13.4-35.0) 05/12/18 04:47 Reactive Lymphs % (Man) 0 % 05/12/18 04:47 Monocytes % (Manual) 9.0 % (0.0-7.3) H 05/12/18 04:47 Eosinophils % (Manual) 2.0 % (0.0-4.3) 05/12/18 04:47 Basophils % (Manual) 1.0 % (0.0-1.8) 05/12/18 04:47 Metamyelocytes % 0 % 05/12/18 04:47 Myelocytes % 0 % 05/12/18 04:47 Promyelocytes % 0 % 05/12/18 04:47 Blast Cells % 0 % 05/12/18 04:47 Nucleated RBC % Not Reportable 05/12/18 04:47 Seg Neutrophils # Man 2.0 K/mm3 (1.8-7.7) 05/12/18 04:47 Band Neutrophils # 0.0 K/mm3 05/12/18 04:47 Lymphocytes # (Manual) 1.3 K/mm3 (1.2-5.4) 05/12/18 04:47 Abs React Lymphs (Man) 0.0 K/mm3 05/12/18 04:47 Monocytes # (Manual) 0.3 K/mm3 (0.0-0.8) 05/12/18 04:47 Eosinophils # (Manual) 0.1 K/mm3 (0.0-0.4) 05/12/18 04:47 Basophils # (Manual) 0.0 K/mm3 (0.0-0.1) 05/12/18 04:47 Metamyelocytes # 0.0 K/mm3 05/12/18 04:47 Myelocytes # 0.0 K/mm3 05/12/18 04:47 Promyelocytes # 0.0 K/mm3 05/12/18 04:47 Blast Cells # 0.0 K/mm3 05/12/18 04:47 WBC Morphology Not Reportable 05/12/18 04:47 Hypersegmented Neuts Not Reportable 05/12/18 04:47 Hyposegmented Neuts Not Reportable 05/12/18 04:47 Hypogranular Neuts Not Reportable 05/12/18 04:47 Smudge Cells Not Reportable 05/12/18 04:47 Toxic Granulation Not Reportable 05/12/18 04:47 Toxic Vacuolation Not Reportable 05/12/18 04:47 Dohle Bodies Not Reportable 05/12/18 04:47 Pelger-Huet Anomaly Not Reportable 05/12/18 04:47 [place] Rods Not Reportable 05/12/18 04:47 Platelet Estimate Appears normal 05/12/18 04:47 Clumped Platelets Not Reportable 05/12/18 04:47 Plt Clumps, EDTA Not Reportable 05/12/18 04:47 Large Platelets Not Reportable 05/12/18 04:47 Giant Platelets Not Reportable 05/12/18 04:47 Platelet Satelliting Not Reportable 05/12/18 04:47 Plt Morphology Comment Not Reportable 05/12/18 04:47 RBC Morphology Normal 05/12/18 04:47 Dimorphic RBCs Not Reportable 05/12/18 04:47 Polychromasia Not Reportable 05/12/18 04:47 Hypochromasia Not Reportable 05/12/18 04:47 Poikilocytosis Not Reportable 05/12/18 04:47 Anisocytosis Not Reportable 05/12/18 04:47 Microcytosis Not Reportable 05/12/18 04:47 Macrocytosis Not Reportable 05/12/18 04:47 Spherocytes Not Reportable 05/12/18 04:47 Pappenheimer Bodies Not Reportable 05/12/18 04:47 Sickle Cells Not Reportable 05/12/18 04:47 Target Cells Not Reportable 05/12/18 04:47 Tear Drop Cells Not Reportable 05/12/18 04:47 Ovalocytes Not Reportable 05/12/18 04:47 Helmet Cells Not Reportable 05/12/18 04:47 Loz[place] Bodies Not Reportable 05/12/18 04:47 [place] Rings Not Reportable 05/12/18 04:47 Jacquelyn Cells Not Reportable 05/12/18 04:47 Bite Cells Not Reportable 05/12/18 04:47 Crenated Cell Not Reportable 05/12/18 04:47 Elliptocytes Not Reportable 05/12/18 04:47 Acanthocytes (Spur) Not Reportable 05/12/18 04:47 Rouleaux Not Reportable 05/12/18 04:47 Hemoglobin C Crystals Not Reportable 05/12/18 04:47 Schistocytes Not Reportable 05/12/18 04:47 Malaria parasites Not Reportable 05/12/18 04:47 Kan Bodies Not Reportable 05/12/18 04:47 Hem Pathologist Commnt No 05/12/18 04:47 PT 12.6 Sec. (12.2-14.9) 05/11/18 18:17 INR 0.90 (0.87-1.13) 05/11/18 18:17 Sodium 137 mmol/L (137-145) 05/12/18 04:47 Potassium 3.9 mmol/L (3.6-5.0) 05/12/18 04:47 Chloride 100.4 mmol/L (98-107) 05/12/18 04:47 Carbon Dioxide 24 mmol/L (22-30) 05/12/18 04:47 Anion Gap 17 mmol/L 05/12/18 04:47 BUN 12 mg/dL (9-20) 05/12/18 04:47 Creatinine 1.2 mg/dL (0.8-1.5) 05/12/18 04:47 Estimated GFR > 60 ml/min 05/12/18 04:47 BUN/Creatinine Ratio 10 % 05/12/18 04:47 Glucose 136 mg/dL (75-100) H 05/12/18 04:47 POC Glucose 148 (70-105) H 05/12/18 21:24 Hemoglobin A1c 6.4 % (4-6) H 05/12/18 04:47 Calcium 8.4 mg/dL (8.4-10.2) 05/12/18 04:47 Total Bilirubin 0.40 mg/dL (0.1-1.2) 05/12/18 04:47 AST 23 units/L (5-40) 05/12/18 04:47 ALT 22 units/L (7-56) 05/12/18 04:47 Alkaline Phosphatase 88 units/L (35-129) 05/12/18 04:47 Total Protein 5.9 g/dL (6.3-8.2) L 05/12/18 04:47 Albumin 3.6 g/dL (3.9-5) L 05/12/18 04:47 Albumin/Globulin Ratio 1.6 % 05/12/18 04:47 Amylase 67 units/L (27-131) 05/11/18 18:17 Lipase 23 units/L (13-60) 05/11/18 18:17 Urine Color Yellow (Yellow) 05/11/18 Unknown Urine Turbidity Clear (Clear) 05/11/18 Unknown Urine pH 5.0 (5.0-7.0) 05/11/18 Unknown Ur Specific [place] 1.030 (1.003-1.030) 05/11/18 Unknown Urine Protein 30 mg/dl mg/dL (Negative) 05/11/18 Unknown Urine Glucose (UA) Neg mg/dL (Negative) 05/11/18 Unknown Urine Ketones Neg mg/dL (Negative) 05/11/18 Unknown Urine Blood Neg (Negative) 05/11/18 Unknown Urine Nitrite Neg (Negative) 05/11/18 Unknown Urine Bilirubin Neg (Negative) 05/11/18 Unknown Urine Urobilinogen 2.0 mg/dL (<2.0) 05/11/18 Unknown Ur Leukocyte Esterase Neg (Negative) 05/11/18 Unknown Urine WBC (Auto) < 1.0 /HPF (0.0-6.0) 05/11/18 Unknown Urine RBC (Auto) < 1.0 /HPF (0.0-6.0) 05/11/18 Unknown Urine Mucus 1+ /HPF 05/11/18 Unknown Urine Opiates Screen Presumptive negative 05/11/18 Unknown Urine Methadone Screen Presumptive negative 05/11/18 Unknown Ur Barbiturates Screen Presumptive negative 05/11/18 Unknown Ur Phencyclidine Scrn Presumptive negative 05/11/18 Unknown Ur Amphetamines Screen Presumptive negative 05/11/18 Unknown U Benzodiazepines Scrn Presumptive negative 05/11/18 Unknown Urine Cocaine Screen Presumptive positive 05/11/18 Unknown U Marijuana (THC) Screen Presumptive negative 05/11/18 Unknown Drugs of Abuse Note Disclamer 05/11/18 Unknown Plasma/Serum Alcohol < 0.01 % (0-0.07) 05/11/18 18:17
[2018-05-13] MEDS: HumaLOG SUB-Q SCH ×5 (01:36→23:09)
[2018-05-13] MEDS: DESYREL PO SCH ×2 (01:36→23:07)
[2018-05-13] MEDS: CATAPRES PO SCH ×10 (01:44→23:16)
[2018-05-13] MEDS: ATIVAN PO SCH ×4 (01:45→23:08)
[2018-05-13] MEDS: PERCOCET 5/325 PO PRN ×2 (08:47→19:36)
[2018-05-13] MEDS: FOLVITE PO SCH ×2 (09:19→09:31)
[2018-05-13] MEDS: THERAGRAN Tab PO SCH (09:19)
[2018-05-13] MEDS: LOVENOX SUB-Q SCH (09:22)
[2018-05-13] MEDS: HCTZ PO SCH (09:22)
[2018-05-13] MEDS: BABY ASPIRIN PO SCH (09:22)
[2018-05-13] MEDS: NORVASC PO SCH (09:23)
[2018-05-13] MEDS: VITAMIN B-1 PO SCH (09:39)
[2018-05-13] MEDS: GLUCOPHAGE PO SCH ×2 (09:40→23:09)
--- NOTE | 2018-05-13 14:37 | Discharge Summary ---
Providers - Providers Date of Admission: 05/11/18 15:29 Date of discharge: 05/13/18 Attending physician: ASHU PARK Primary care physician: PAULO OH Hospitalization Condition: Stable Hospital course: Mr. Forrester is a 57-year-old man with history of hypertension, DM type 2 and cps due to bilateral hip pains who was recently discharged on 03/09/2018 after being treated for EtOH withdrawal and cocaine withdrawal. He relapsed and presented as a direct admit to [facility] for ETOH withdrawal symptoms. (1) EtOH dependence with withdrawals, resolved (2) Cocaine dependence (3) Bipolar disorder (4) Hypertension (5) T2DM (type 2 diabetes mellitus) Continue metformin in coverage Check hemoglobin A1c==>6.4, pt refusing Metformin and appears to be in denial and doesn't want it (6) Generalized anxiety disorder (7) Bilateral hip pains: follow up with your "[place] doctor" most likely Dr. Cole Gupta who gave him 84 pills of percocet 10 on 05/02/2018 according to [place] seconds inspector aware. Disposition: DC-01 TO HOME OR SELFCARE Time spent for discharge: 33 minutes Core Measure Documentation - Palliative Care Palliative Care/ Comfort Measures: Not Applicable - Core Measures Any of the following diagnoses?: none - VTE Discharge Requirements Deep Vein Thrombosis/Pulmonary Embolism Present on Admission: No Has pt received <5 days of overlap therapy or INR<2.0: No Anticoagulant overlap therapy prescribed at discharge: No Contraindication No Overlap Therapy order at DC: Not Indicated Exam - Physical Exam Narrative exam: GEN: WDWN, NAD, Awake, Alert, Orientated x 3 HEENT: NCAT, EOMI, PERRL, OP Clear NECK: supple, no adenopathy, no thyromegaly, no JVD CVS/HEART: RRR, normal S1S2, pulses present bilaterally CHEST/LUNGS: CTA B, Symmetrical chest expansion, good air entry bilaterally GI/Abdomen: soft, NTND, good bowel sounds, no guarding or rebound /Bladder: no suprapubic tenderness, no CVA or paraspinal tenderness EXT/Skin: no c/c/e, no obvious rash MSK: FROM x 4 Neuro: CN 2-12 grossly intact, no new focal deficits Psych: calm - Constitutional Vitals: Temp Pulse Resp BP Pulse Ox 99.4 F 79 20 141/75 96 05/13/18 12:41 05/13/18 12:41 05/13/18 12:41 05/13/18 12:41 05/13/18 12:41 Plan Activity: other (no strenous activity ) Diet: low salt, diabetic Additional Instructions: follow up Dr. Cole Gupta in [place], [place] Follow up with: PAULO OH JR, MD [Primary Care Provider] - 7 Days Prescriptions: traZODone [Desyrel] 50 mg PO QHS #30 tablet Acetaminophen [Acetaminophen TAB] 500 mg PO Q6H PRN #10 tablet PRN Reason: Pain, Moderate (4-6) amLODIPine [Norvasc] 10 mg PO DAILY #30 tablet metFORMIN [Glucophage] 500 mg PO BID #60 tablet Multivitamin Tab [Multiple Vitamin TAB (Theragran)] 1 each PO QDAY #30 tablet Nicotine [Habitrol] 21 mg TD QDAY PRN #15 patch PRN Reason: Smoking Cessation Thiamine [Vitamin B-1] 100 mg PO QDAY #30 tablet
--- NOTE | 2018-05-13 18:41 | Progress Note ---
Assessment and Plan Assessment and plan: Mr. Forrester is a 57-year-old man with history of hypertension, DM type 2 and cps due to bilateral hip pains who was recently discharged on 03/09/2018 after being treated for EtOH withdrawal and cocaine withdrawal. He relapsed and presented as a direct admit to [facility] for ETOH withdrawal symptoms. (1) EtOH dependence with withdrawals, resolved (2) Cocaine dependence (3) Bipolar disorder (4) Hypertension (5) T2DM (type 2 diabetes mellitus) Continue metformin in coverage Check hemoglobin A1c==>6.4, pt refusing Metformin and appears to be in denial and doesn't want it (6) Generalized anxiety disorder (7) Bilateral hip pains: follow up with your "[place] doctor" most likely Dr. Cole Gupta who gave him 84 pills of percocet 10 on 05/02/2018 according to [place] surgical technologist aware. Patient was discharged but declined to leave because he states Sheridan from [facility] had arranged for placement pickup on Tuesday. There is no [facility] documenatation in the chart per RN to collaborate this. Will discharge tomorrow. Hospitalist Physical - Constitutional Vitals: Temp Pulse Resp BP Pulse Ox 99.8 F H 71 20 129/84 97 05/13/18 16:24 05/13/18 17:16 05/13/18 16:24 05/13/18 17:16 05/13/18 16:24 General appearance: Present: no acute distress, well-nourished, obese Results - Labs CBC & Chem 7: 05/12/18 04:47 05/12/18 04:47 Labs: Laboratory Last Values WBC 3.7 K/mm3 (4.5-11.0) L 05/12/18 04:47 RBC 4.50 M/mm3 (3.65-5.03) 05/12/18 04:47 Hgb 13.3 gm/dl (11.8-15.2) 05/12/18 04:47 Hct 39.3 % (35.5-45.6) 05/12/18 04:47 MCV 87 fl (84-94) 05/12/18 04:47 MCH 30 pg (28-32) 05/12/18 04:47 MCHC 34 % (32-34) 05/12/18 04:47 RDW 14.9 % (13.2-15.2) 05/12/18 04:47 Plt Count 220 K/mm3 (140-440) 05/12/18 04:47 [place] % (Auto) Float Phlebotomist 05/12/18 04:47 Add Manual Diff Complete 05/12/18 04:47 Total Counted 100 05/12/18 04:47 Seg Neuts % (Manual) 53.0 % (40.0-70.0) 05/12/18 04:47 Band Neutrophils % 1.0 % 05/12/18 04:47 Lymphocytes % (Manual) 34.0 % (13.4-35.0) 05/12/18 04:47 Reactive Lymphs % (Man) 0 % 05/12/18 04:47 Monocytes % (Manual) 9.0 % (0.0-7.3) H 05/12/18 04:47 Eosinophils % (Manual) 2.0 % (0.0-4.3) 05/12/18 04:47 Basophils % (Manual) 1.0 % (0.0-1.8) 05/12/18 04:47 Metamyelocytes % 0 % 05/12/18 04:47 Myelocytes % 0 % 05/12/18 04:47 Promyelocytes % 0 % 05/12/18 04:47 Blast Cells % 0 % 05/12/18 04:47 Nucleated RBC % Not Reportable 05/12/18 04:47 Seg Neutrophils # Man 2.0 K/mm3 (1.8-7.7) 05/12/18 04:47 Band Neutrophils # 0.0 K/mm3 05/12/18 04:47 Lymphocytes # (Manual) 1.3 K/mm3 (1.2-5.4) 05/12/18 04:47 Abs React Lymphs (Man) 0.0 K/mm3 05/12/18 04:47 Monocytes # (Manual) 0.3 K/mm3 (0.0-0.8) 05/12/18 04:47 Eosinophils # (Manual) 0.1 K/mm3 (0.0-0.4) 05/12/18 04:47 Basophils # (Manual) 0.0 K/mm3 (0.0-0.1) 05/12/18 04:47 Metamyelocytes # 0.0 K/mm3 05/12/18 04:47 Myelocytes # 0.0 K/mm3 05/12/18 04:47 Promyelocytes # 0.0 K/mm3 05/12/18 04:47 Blast Cells # 0.0 K/mm3 05/12/18 04:47 WBC Morphology Not Reportable 05/12/18 04:47 Hypersegmented Neuts Not Reportable 05/12/18 04:47 Hyposegmented Neuts Not Reportable 05/12/18 04:47 Hypogranular Neuts Not Reportable 05/12/18 04:47 Smudge Cells Not Reportable 05/12/18 04:47 Toxic Granulation Not Reportable 05/12/18 04:47 Toxic Vacuolation Not Reportable 05/12/18 04:47 Dohle Bodies Not Reportable 05/12/18 04:47 Pelger-Huet Anomaly Not Reportable 05/12/18 04:47 [place] Rods Not Reportable 05/12/18 04:47 Platelet Estimate Appears normal 05/12/18 04:47 Clumped Platelets Not Reportable 05/12/18 04:47 Plt Clumps, EDTA Not Reportable 05/12/18 04:47 Large Platelets Not Reportable 05/12/18 04:47 Giant Platelets Not Reportable 05/12/18 04:47 Platelet Satelliting Not Reportable 05/12/18 04:47 Plt Morphology Comment Not Reportable 05/12/18 04:47 RBC Morphology Normal 05/12/18 04:47 Dimorphic RBCs Not Reportable 05/12/18 04:47 Polychromasia Not Reportable 05/12/18 04:47 Hypochromasia Not Reportable 05/12/18 04:47 Poikilocytosis Not Reportable 05/12/18 04:47 Anisocytosis Not Reportable 05/12/18 04:47 Microcytosis Not Reportable 05/12/18 04:47 Macrocytosis Not Reportable 05/12/18 04:47 Spherocytes Not Reportable 05/12/18 04:47 Pappenheimer Bodies Not Reportable 05/12/18 04:47 Sickle Cells Not Reportable 05/12/18 04:47 Target Cells Not Reportable 05/12/18 04:47 Tear Drop Cells Not Reportable 05/12/18 04:47 Ovalocytes Not Reportable 05/12/18 04:47 Helmet Cells Not Reportable 05/12/18 04:47 [place]oz[place] Bodies Not Reportable 05/12/18 04:47 [place] Rings Not Reportable 05/12/18 04:47 Jacquelyn Cells Not Reportable 05/12/18 04:47 Bite Cells Not Reportable 05/12/18 04:47 Crenated Cell Not Reportable 05/12/18 04:47 Elliptocytes Not Reportable 05/12/18 04:47 Acanthocytes (Spur) Not Reportable 05/12/18 04:47 Rouleaux Not Reportable 05/12/18 04:47 Hemoglobin C Crystals Not Reportable 05/12/18 04:47 Schistocytes Not Reportable 05/12/18 04:47 Malaria parasites Not Reportable 05/12/18 04:47 Kan Bodies Not Reportable 05/12/18 04:47 Hem Pathologist Commnt No 05/12/18 04:47 PT 12.6 Sec. (12.2-14.9) 05/11/18 18:17 INR 0.90 (0.87-1.13) 05/11/18 18:17 Sodium 137 mmol/L (137-145) 05/12/18 04:47 Potassium 3.9 mmol/L (3.6-5.0) 05/12/18 04:47 Chloride 100.4 mmol/L (98-107) 05/12/18 04:47 Carbon Dioxide 24 mmol/L (22-30) 05/12/18 04:47 Anion Gap 17 mmol/L 05/12/18 04:47 BUN 12 mg/dL (9-20) 05/12/18 04:47 Creatinine 1.2 mg/dL (0.8-1.5) 05/12/18 04:47 Estimated GFR > 60 ml/min 05/12/18 04:47 BUN/Creatinine Ratio 10 % 05/12/18 04:47 Glucose 136 mg/dL (75-100) H 05/12/18 04:47 POC Glucose 150 (70-105) H 05/13/18 16:32 Hemoglobin A1c 6.4 % (4-6) H 05/12/18 04:47 Calcium 8.4 mg/dL (8.4-10.2) 05/12/18 04:47 Total Bilirubin 0.40 mg/dL (0.1-1.2) 05/12/18 04:47 AST 23 units/L (5-40) 05/12/18 04:47 ALT 22 units/L (7-56) 05/12/18 04:47 Alkaline Phosphatase 88 units/L (35-129) 05/12/18 04:47 Total Protein 5.9 g/dL (6.3-8.2) L 05/12/18 04:47 Albumin 3.6 g/dL (3.9-5) L 05/12/18 04:47 Albumin/Globulin Ratio 1.6 % 05/12/18 04:47 Amylase 67 units/L (27-131) 05/11/18 18:17 Lipase 23 units/L (13-60) 05/11/18 18:17 Urine Color Yellow (Yellow) 05/11/18 Unknown Urine Turbidity Clear (Clear) 05/11/18 Unknown Urine pH 5.0 (5.0-7.0) 05/11/18 Unknown Ur Specific [place] 1.030 (1.003-1.030) 05/11/18 Unknown Urine Protein 30 mg/dl mg/dL (Negative) 05/11/18 Unknown Urine Glucose (UA) Neg mg/dL (Negative) 05/11/18 Unknown Urine Ketones Neg mg/dL (Negative) 05/11/18 Unknown Urine Blood Neg (Negative) 05/11/18 Unknown Urine Nitrite Neg (Negative) 05/11/18 Unknown Urine Bilirubin Neg (Negative) 05/11/18 Unknown Urine Urobilinogen 2.0 mg/dL (<2.0) 05/11/18 Unknown Ur Leukocyte Esterase Neg (Negative) 05/11/18 Unknown Urine WBC (Auto) < 1.0 /HPF (0.0-6.0) 05/11/18 Unknown Urine RBC (Auto) < 1.0 /HPF (0.0-6.0) 05/11/18 Unknown Urine Mucus 1+ /HPF 05/11/18 Unknown Urine Opiates Screen Presumptive negative 05/11/18 Unknown Urine Methadone Screen Presumptive negative 05/11/18 Unknown Ur Barbiturates Screen Presumptive negative 05/11/18 Unknown Ur Phencyclidine Scrn Presumptive negative 05/11/18 Unknown Ur Amphetamines Screen Presumptive negative 05/11/18 Unknown U Benzodiazepines Scrn Presumptive negative 05/11/18 Unknown Urine Cocaine Screen Presumptive positive 05/11/18 Unknown U Marijuana (THC) Screen Presumptive negative 05/11/18 Unknown Drugs of Abuse Note Disclamer 05/11/18 Unknown Plasma/Serum Alcohol < 0.01 % (0-0.07) 05/11/18 18:17
[2018-05-13] MEDS: NACL 0.9% 1000 ML 1,000 ML IV SCH (23:17)
[2018-05-14] MEDS: CATAPRES PO SCH ×3 (04:23→09:06)
[2018-05-14] MEDS: ATIVAN PO SCH (06:56)
[2018-05-14] MEDS: HumaLOG SUB-Q SCH (08:00)
[2018-05-14] MEDS: FOLVITE PO SCH ×2 (09:03→09:07)
[2018-05-14] MEDS: BABY ASPIRIN PO SCH (09:03)
[2018-05-14] MEDS: NORVASC PO SCH (09:03)
[2018-05-14] MEDS: HCTZ PO SCH (09:03)
[2018-05-14] MEDS: LOVENOX SUB-Q SCH (09:04)
[2018-05-14] MEDS: THERAGRAN Tab PO SCH (09:04)
[2018-05-14] MEDS: VITAMIN B-1 PO SCH (09:05)
[2018-05-14] MEDS: GLUCOPHAGE PO SCH (09:05)
[2018-05-14] MEDS: NACL 0.9% 1000 ML 1,000 ML IV SCH (11:12)
[2018-05-14 13:58] VITALS: BP 147/89
== END 2018-05-14 12:35 | disposition home or self-care (01) | DRG 898 ==
LOC: UNDOADMIN 14:35 → 2B-ACE 14:35 → MSU 15:29
PROVIDERS: ADMIT Internal Medicine; ATTEND Internal Medicine
DX: F10.239 Alcohol dependence with withdrawal, unspecified (principal); E86.0 Dehydration; F14.23 Cocaine dependence with withdrawal; I10 Essential (primary) hypertension; R19.7 Diarrhea, unspecified; R55 Syncope and collapse; R11.2 Nausea with vomiting, unspecified; E11.9 Type 2 diabetes mellitus without complications; F17.210 Nicotine dependence, cigarettes, uncomplicated; F31.9 Bipolar disorder, unspecified; F41.1 Generalized anxiety disorder; M25.552 Pain in left hip; M25.551 Pain in right hip; Z82.49 Family history of ischemic heart disease and other diseases of the circulatory system; Z88.0 Allergy status to penicillin; Z91.018 Allergy to other foods
CPT/HCPCS: 36415; 80053; 80307; 80320; 81001; 82150; 82962; 83036; 83690; 85007; 85025; 85027; 85610; 87116; 93005; 93010; G0480; J1650; J1815; J2060; J3411; J7030; J7120; Q0177

== ENCOUNTER 2019-12-26 17:10 | Emergency (ER) | payer MEDICAID ==
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
--- NOTE | 2019-12-26 21:26 | XRay Report ---
LEFT HIP RADIOGRAPH 2 VIEWS INDICATION / CLINICAL INFORMATION: pain COMPARISON: None available. FINDINGS: BONES / JOINT(S): No acute displaced fracture or subluxation. There is moderate degenerative change o f the left hip with associated bony remodeling/bony hypertrophy of the lateral acetabulum. Mild degen erative change of the right hip. SOFT TISSUES: No significant abnormality. ADDITIONAL FINDINGS: None. Signer Name: Rebeka Gambino MD Signed: 12/26/2019 9:21 PM Workstation Name: [id number]
--- NOTE | 2019-12-26 21:27 | XRay Report ---
LUMBAR SPINE HISTORY: Pain COMPARISON: None. TECHNIQUE: 3 view(s) of the lumbar spine obtained. FINDINGS: Vertebrae: Normal alignment. No displaced fracture or significant abnormality. Disc Spaces:No significant abnormality. Facet Joints:No significant abnormality. Additional findings: None. IMPRESSION: 1. No significant abnormality of the lumbar spine. Signer Name: Rebeka Gambino MD Signed: 12/26/2019 9:23 PM Workstation Name: [id number]
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
[2019-12-26] MEDS ORDERED: KETOROLAC 30 MG/1 ML INJ IM ONE (22:32)
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
[2019-12-27 02:50] VITALS: BP 138/74
== END 2019-12-26 23:00 | disposition home or self-care (01) ==
LOC: ED 17:10
DX: M25.571 Pain in right ankle and joints of right foot (principal); M25.552 Pain in left hip; M54.5 Low back pain; I10 Essential (primary) hypertension; E11.9 Type 2 diabetes mellitus without complications; G43.909 Migraine, unspecified, not intractable, without status migrainosus; J44.9 Chronic obstructive pulmonary disease, unspecified; F39 Unspecified mood [affective] disorder; F17.200 Nicotine dependence, unspecified, uncomplicated; Z90.49 Acquired absence of other specified parts of digestive tract; Z88.0 Allergy status to penicillin; Z91.018 Allergy to other foods; Z88.8 Allergy status to other drugs, medicaments and biological substances; Z91.038 Other insect allergy status; Z98.890 Other specified postprocedural states; Z79.899 Other long term (current) drug therapy; V09.9XXA Pedestrian injured in unspecified transport accident, initial encounter; Y93.89 Activity, other specified; Y92.89 Other specified places as the place of occurrence of the external cause; Y99.8 Other external cause status
CPT/HCPCS: 72100; 73502; 73620; 96372; 99284; J1885

== ENCOUNTER 2020-07-25 06:08 | Emergency (ER) | payer MEDICAID ==
[2020-07-25 08:21] LABS: Amphetamine Screen,Urine Negative; Benzodiazepines Screen,Urine Negative; Cannabinoid Screen,Urine Negative; Methadone Screen,Urine Negative; Opiate Screen,Urine Negative
[2020-07-25 08:23] LABS: Basophils # (Auto) 0.1 K/mm3 (0.0-0.1); Basophils % (Auto) 1.1 % (0.0-1.8); Eosinophils # (Auto) 0.1 K/mm3 (0.0-0.4); Eosinophils % (Auto) 0.7 % (0.0-4.3); Hematocrit 45.3 % (35.5-45.6); Hemoglobin 15.3 gm/dl (11.8-15.2); Lymphocytes # (Auto) 2.2 K/mm3 (1.2-5.4); Mean Corpuscular HGB Conc 34 % (32-34); Mean Corpuscular Volume 87 fl (84-94); Monocytes # (Auto) 0.8 K/mm3 (0.0-0.8); Monocytes % (Auto) 9.4 % (0.0-7.3); Platelet Count 278 K/mm3 (140-440); Red Blood Count 5.19 M/mm3 (3.65-5.03); Red Cell Distribution Width 15.5 % (13.2-15.2)
[2020-07-25 08:30] LABS: Bilirubin,Urine NEG (Negative); Blood,Urine NEG (Negative); Color,Urine Yellow (Yellow); Mucus,Urine FEW /HPF; Protein,Urine <15 mg/dL mg/dL (Negative); Urobilinogen,Urine < 2.0 mg/dL (<2.0); WBC,Urine < 1.0 /HPF (0.0-6.0)
[2020-07-25 08:41] LABS: Cocaine Screen,Urine Positive
[2020-07-25 08:43] LABS: BUN/Creatinine Ratio 9; Blood Urea Nitrogen 11 mg/dL (9-20); Calcium 9.6 mg/dL (8.4-10.2); Hemolysis Index 15
[2020-07-25] MEDS ORDERED: IBUPROFEN 800 MG TAB PO PRN (10:42)
[2020-07-25] MEDS ORDERED: ACETAMINOPHEN 500 MG TAB PO PRN (10:42)
[2020-07-25] MEDS ORDERED: NICOTINE 21 MG/24 HR PATCH TD PRN (10:42)
--- NOTE | 2020-07-25 10:48 | Emergency Department Report ---
ED General Adult HPI - General Chief complaint: Psych Stated complaint: PSYCH EVAL PUI?: No Time Seen by Provider: 07/25/20 08:00 Source: patient, RN notes reviewed, old records reviewed Mode of arrival: Ambulatory Limitations: No Limitations - History of Present Illness Initial comments: The patient was evaluated in the emergency department for symptoms described in the history of present illness. He/she was evaluated in the context of the global COVID-19 pandemic, which necessitated consideration that the patient might be at risk for infection with the virus that causes COVID-19. Institutional protocols and algorithms that pertain to the evaluation of patients at risk for COVID-19 are in a state of rapid change based on information released by regulatory bodies including the CDC and federal and state organizations. These policies and algorithms were followed during the patient's care in the emergency department. Please note that these policies, procedures and recommendations changed on a rapid basis. The patient is a 59-year-old gentleman. He has a history of asthma, COPD, borderline diabetes, hypertension, schizoaffective disorder, and arthritis. He presents to the ER today with a request for medical clearance to go to a local psychiatric facility. He reports depression, and states "I really want an evaluation." He is not homicidal or suicidal. He does not have access to guns or firearms. He is not experiencing hallucinations. He states that he wants some help and "someone to talk to, so I can get it together." He denies headache, neck pain, chest pain, abdominal pain, shortness of breath, urinary symptoms. He has chronic arthritic pain. -: month(s) Severity scale (0 -10): 0 Improves with: none Worsens with: none Associated Symptoms: denies other symptoms - Related Data Home Medications Medication Instructions Recorded Confirmed Last Taken QUEtiapine [SEROquel] 25 mg PO QHS 03/06/18 07/25/20 Unknown Previous Rx's Medication Instructions Recorded Last Taken Type oxyCODONE /ACETAMINOPHEN [Percocet 1 tab PO Q6H PRN #4 tablet 02/15/18 Unknown Rx 5/325 mg] traZODone [Desyrel] 50 mg PO QHS #30 tablet 05/13/18 Unknown Rx Cyclobenzaprine [Flexeril] 10 mg PO TID PRN #12 tablet 12/26/19 Unknown Rx Acetaminophen [Acetaminophen TAB] 500 mg PO Q6H PRN #10 tablet 07/25/20 Unknown Rx Aspirin [Aspirin BABY CHEW TAB] 81 mg PO QDAY #30 tab.chew 07/25/20 Unknown Rx Ibuprofen [Motrin 800 MG tab] 800 mg PO Q8HR PRN #20 tablet 07/25/20 Unknown Rx Multivitamin Tab [Multiple Vitamin 1 each PO QDAY #30 tablet 07/25/20 Unknown Rx TAB (Theragran)] Nicotine [Habitrol] 21 mg TD QDAY PRN #15 patch 07/25/20 Unknown Rx Thiamine [Vitamin B-1] 100 mg PO QDAY #30 tablet 07/25/20 Unknown Rx amLODIPine 10 mg PO DAILY #30 tablet 07/25/20 Unknown Rx hydroCHLOROthiazide [HCTZ] 25 mg PO QDAY #30 tab 07/25/20 Unknown Rx metFORMIN [Glucophage] 500 mg PO BID #60 tablet 07/25/20 Unknown Rx Allergies Allergy/AdvReac Type Severity Reaction Status Date / Time Penicillins Allergy Hives Verified 12/28/15 22:38 tomato Allergy Hives Verified 12/28/15 22:38 venom-wasp [wasp venom] Allergy Hives Verified 12/28/15 22:38 trazodone AdvReac Unknown Verified 05/13/18 23:32 ED Review of Systems ROS: Stated complaint: PSYCH EVAL Other details as noted in HPI Comment: All other systems reviewed and negative Musculoskeletal: arthralgia, myalgia Psychiatric: depression. denies: homicidal thoughts ED Past Medical Hx - Past Medical History Previous Medical History?: Yes Hx Hypertension: Yes Hx Diabetes: Yes (Borderline) Hx Headaches / Migraines: Yes Hx Psychiatric Treatment: Yes (psychizo affective disorder) Hx Asthma: Yes Hx COPD: Yes - Surgical History Hx Cholecystectomy: Yes Additional Surgical History: hip - Social History Smoking Status: Never Smoker Substance Use Type: None - Medications Home Medications: Home Medications Medication Instructions Recorded Confirmed Last Taken Type oxyCODONE /ACETAMINOPHEN [Percocet 1 tab PO Q6H PRN #4 tablet 02/15/18 07/25/20 Unknown Rx 5/325 mg] QUEtiapine [SEROquel] 25 mg PO QHS 03/06/18 07/25/20 Unknown History traZODone [Desyrel] 50 mg PO QHS #30 tablet 05/13/18 07/25/20 Unknown Rx Cyclobenzaprine [Flexeril] 10 mg PO TID PRN #12 tablet 12/26/19 07/25/20 Unknown Rx Acetaminophen [Acetaminophen TAB] 500 mg PO Q6H PRN #10 tablet 07/25/20 Unknown Rx Aspirin [Aspirin BABY CHEW TAB] 81 mg PO QDAY #30 tab.chew 07/25/20 Unknown Rx Ibuprofen [Motrin 800 MG tab] 800 mg PO Q8HR PRN #20 tablet 07/25/20 Unknown Rx Multivitamin Tab [Multiple Vitamin 1 each PO QDAY #30 tablet 07/25/20 Unknown Rx TAB (Theragran)] Nicotine [Habitrol] 21 mg TD QDAY PRN #15 patch 07/25/20 Unknown Rx Thiamine [Vitamin B-1] 100 mg PO QDAY #30 tablet 07/25/20 Unknown Rx amLODIPine 10 mg PO DAILY #30 tablet 07/25/20 Unknown Rx hydroCHLOROthiazide [HCTZ] 25 mg PO QDAY #30 tab 07/25/20 Unknown Rx metFORMIN [Glucophage] 500 mg PO BID #60 tablet 07/25/20 Unknown Rx ED Physical Exam - General Limitations: No Limitations General appearance: alert, in no apparent distress - Head Head exam: Present: atraumatic, normocephalic - Eye Eye exam: Present: normal appearance, EOMI. Absent: nystagmus - ENT ENT exam: Present: normal exam, normal orophraynx, mucous membranes moist, normal external ear exam - Neck Neck exam: Present: normal inspection, full ROM. Absent: tenderness, meningismus - Respiratory Respiratory exam: Present: normal lung sounds bilaterally. Absent: respiratory distress, wheezes, rales, rhonchi, stridor - Cardiovascular Cardiovascular Exam: Present: regular rate, normal rhythm, normal heart sounds. Absent: bradycardia, tachycardia, irregular rhythm, systolic murmur, diastolic murmur, rubs, gallop - GI/Abdominal GI/Abdominal exam: Present: soft. Absent: distended, tenderness, guarding, rebound, rigid, pulsatile mass - Rectal Rectal exam: Present: deferred - Extremities Exam Extremities exam: Present: normal inspection, full ROM, other (2+ pulses noted in the bilateral upper and lower extremities. There is no palpable cord. negative Homans sign. Muscular compartments are soft. The pelvis is stable.). Absent: calf tenderness - Back Exam Back exam: Present: normal inspection, full ROM. Absent: tenderness, CVA tenderness (R), CVA tenderness (L), paraspinal tenderness, vertebral tenderness - Neurological Exam Neurological exam: Present: alert, oriented X3, normal gait, other (No facial droop. Tongue midline. Extraocular movements intact bilaterally. Facial sensation intact to light touch in V1, V2, V3 distribution bilaterally. 5 and a 5 strength in 4 extremities. Sensation intact to light touch in 4 extremities.). Absent: motor sensory deficit - Psychiatric Psychiatric exam: Present: flat affect. Absent: homicidal ideation, suicidal ideation - Skin Skin exam: Present: warm, dry, intact, normal color. Absent: rash ED Course Vital Signs 07/25/20 07/25/20 07/25/20 06:53 08:10 14:00 Temperature 98.7 F 97.6 F Pulse Rate 79 67 85 Respiratory 18 20 18 Rate Blood Pressure 189/108 Blood Pressure 180/102 155/89 [Right] O2 Sat by Pulse 99 96 98 Oximetry 07/25/20 07/25/20 07/25/20 20:03 20:23 21:23 Temperature 98.3 F Pulse Rate 88 Respiratory 18 18 18 Rate Blood Pressure Blood Pressure 157/97 [Right] O2 Sat by Pulse 95 Oximetry 07/26/20 07/26/20 07/26/20 02:15 07:33 10:16 Temperature 97.9 F 97.9 F Pulse Rate 76 73 73 Respiratory 16 17 Rate Blood Pressure 128/95 Blood Pressure 165/99 128/95 [Right] O2 Sat by Pulse 96 98 Oximetry - Reevaluation(s) Reevaluation #1: 07/26/20 19:15 Patient was accepted to the fifth floor geriatric psychiatry unit. Patient remains medically suitable at this time for psychiatric care. ED Medical Decision Making - Lab Data Result diagrams: 07/25/20 08:02 07/25/20 08:02 Vital Signs 07/25/20 07/25/20 06:53 08:10 Temperature 98.7 F 97.6 F Pulse Rate 79 67 Respiratory 18 20 Rate Blood Pressure 189/108 Blood Pressure 180/102 [Right] O2 Sat by Pulse 99 96 Oximetry Lab Results 07/25/20 07/25/20 07/25/20 Range/Units 08:02 08:02 08:02 WBC (4.5-11.0) K/mm3 RBC (3.65-5.03) M/mm3 Hgb (11.8-15.2) gm/dl Hct (35.5-45.6) % MCV (84-94) fl MCH (28-32) pg MCHC (32-34) % RDW (13.2-15.2) % Plt Count (140-440) K/mm3 Lymph % (Auto) (13.4-35.0) % [place] % (Auto) (0.0-7.3) % Eos % (Auto) (0.0-4.3) % Baso % (Auto) (0.0-1.8) % Lymph # (Auto) (1.2-5.4) K/mm3 [place] # (Auto) (0.0-0.8) K/mm3 Eos # (Auto) (0.0-0.4) K/mm3 Baso # (Auto) (0.0-0.1) K/mm3 Seg Neutrophils % (40.0-70.0) % Seg Neutrophils # (1.8-7.7) K/mm3 Sodium 134 L (137-145) mmol/L Potassium 3.6 (3.6-5.0) mmol/L Chloride 92.8 L (98-107) mmol/L Carbon Dioxide 29 (22-30) mmol/L Anion Gap 16 mmol/L BUN 11 (9-20) mg/dL Creatinine 1.2 (0.8-1.3) mg/dL Estimated GFR > 60 ml/min BUN/Creatinine Ratio 9 % Glucose 79 (75-100) mg/dL Calcium 9.6 (8.4-10.2) mg/dL Magnesium (1.7-2.3) mg/dL Total Creatine Kinase (55-170) units/L Urine Color (Yellow) Urine Turbidity (Clear) Urine pH (5.0-7.0) Ur Specific [place] (1.003-1.030) Urine Protein (Negative) mg/dL Urine Glucose (UA) (Negative) mg/dL Urine Ketones (Negative) mg/dL Urine Blood (Negative) Urine Nitrite (Negative) Urine Bilirubin (Negative) Urine Urobilinogen (<2.0) mg/dL Ur Leukocyte Esterase (Negative) Urine WBC (Auto) (0.0-6.0) /HPF Urine RBC (Auto) (0.0-6.0) /HPF Urine Mucus /HPF Salicylates < 0.3 L (2.8-20.0) mg/dL Urine Opiates Screen Urine Methadone Screen Acetaminophen 5.0 L (10.0-30.0) ug/mL Ur Barbiturates Screen Ur Phencyclidine Scrn Ur Amphetamines Screen U Benzodiazepines Scrn Urine Cocaine Screen U Marijuana (THC) Screen Drugs of Abuse Note Plasma/Serum Alcohol (0-0.07) % 07/25/20 07/25/20 07/25/20 Range/Units 08:02 08:02 08:07 WBC 8.1 (4.5-11.0) K/mm3 RBC 5.19 H (3.65-5.03) M/mm3 Hgb 15.3 H (11.8-15.2) gm/dl Hct 45.3 (35.5-45.6) % MCV 87 (84-94) fl MCH 29 (28-32) pg MCHC 34 (32-34) % RDW 15.5 H (13.2-15.2) % Plt Count 278 (140-440) K/mm3 Lymph % (Auto) 27.0 (13.4-35.0) % [place] % (Auto) 9.4 H (0.0-7.3) % Eos % (Auto) 0.7 (0.0-4.3) % Baso % (Auto) 1.1 (0.0-1.8) % Lymph # (Auto) 2.2 (1.2-5.4) K/mm3 [place] # (Auto) 0.8 (0.0-0.8) K/mm3 Eos # (Auto) 0.1 (0.0-0.4) K/mm3 Baso # (Auto) 0.1 (0.0-0.1) K/mm3 Seg Neutrophils % 61.8 (40.0-70.0) % Seg Neutrophils # 5.0 (1.8-7.7) K/mm3 Sodium (137-145) mmol/L Potassium (3.6-5.0) mmol/L Chloride (98-107) mmol/L Carbon Dioxide (22-30) mmol/L Anion Gap mmol/L BUN (9-20) mg/dL Creatinine (0.8-1.3) mg/dL Estimated GFR ml/min BUN/Creatinine Ratio % Glucose (75-100) mg/dL Calcium (8.4-10.2) mg/dL Magnesium (1.7-2.3) mg/dL Total Creatine Kinase (55-170) units/L Urine Color (Yellow) Urine Turbidity (Clear) Urine pH (5.0-7.0) Ur Specific [place] (1.003-1.030) Urine Protein (Negative) mg/dL Urine Glucose (UA) (Negative) mg/dL Urine Ketones (Negative) mg/dL Urine Blood (Negative) Urine Nitrite (Negative) Urine Bilirubin (Negative) Urine Urobilinogen (<2.0) mg/dL Ur Leukocyte Esterase (Negative) Urine WBC (Auto) (0.0-6.0) /HPF Urine RBC (Auto) (0.0-6.0) /HPF Urine Mucus /HPF Salicylates (2.8-20.0) mg/dL Urine Opiates Screen Negative Urine Methadone Screen Negative Acetaminophen (10.0-30.0) ug/mL Ur Barbiturates Screen Negative Ur Phencyclidine Scrn Negative Ur Amphetamines Screen Negative U Benzodiazepines Scrn Negative Urine Cocaine Screen Positive U Marijuana (THC) Screen Negative Drugs of Abuse Note Disclamer Plasma/Serum Alcohol < 0.01 (0-0.07) % 07/25/20 07/25/20 Range/Units Unknown Unknown WBC (4.5-11.0) K/mm3 RBC (3.65-5.03) M/mm3 Hgb (11.8-15.2) gm/dl Hct (35.5-45.6) % MCV (84-94) fl MCH (28-32) pg MCHC (32-34) % RDW (13.2-15.2) % Plt Count (140-440) K/mm3 Lymph % (Auto) (13.4-35.0) % [place] % (Auto) (0.0-7.3) % Eos % (Auto) (0.0-4.3) % Baso % (Auto) (0.0-1.8) % Lymph # (Auto) (1.2-5.4) K/mm3 [place] # (Auto) (0.0-0.8) K/mm3 Eos # (Auto) (0.0-0.4) K/mm3 Baso # (Auto) (0.0-0.1) K/mm3 Seg Neutrophils % (40.0-70.0) % Seg Neutrophils # (1.8-7.7) K/mm3 Sodium (137-145) mmol/L Potassium (3.6-5.0) mmol/L Chloride (98-107) mmol/L Carbon Dioxide (22-30) mmol/L Anion Gap mmol/L BUN (9-20) mg/dL Creatinine (0.8-1.3) mg/dL Estimated GFR ml/min BUN/Creatinine Ratio % Glucose (75-100) mg/dL Calcium (8.4-10.2) mg/dL Magnesium 2.10 (1.7-2.3) mg/dL Total Creatine Kinase 838 H (55-170) units/L Urine Color Yellow (Yellow) Urine Turbidity Clear (Clear) Urine pH 6.0 (5.0-7.0) Ur Specific [place] 1.013 (1.003-1.030) Urine Protein <15 mg/dl (Negative) mg/dL Urine Glucose (UA) Neg (Negative) mg/dL Urine Ketones Neg (Negative) mg/dL Urine Blood Neg (Negative) Urine Nitrite Neg (Negative) Urine Bilirubin Neg (Negative) Urine Urobilinogen < 2.0 (<2.0) mg/dL Ur Leukocyte Esterase Neg (Negative) Urine WBC (Auto) < 1.0 (0.0-6.0) /HPF Urine RBC (Auto) 1.0 (0.0-6.0) /HPF Urine Mucus Few /HPF Salicylates (2.8-20.0) mg/dL Urine Opiates Screen Urine Methadone Screen Acetaminophen (10.0-30.0) ug/mL Ur Barbiturates Screen Ur Phencyclidine Scrn Ur Amphetamines Screen U Benzodiazepines Scrn Urine Cocaine Screen U Marijuana (THC) Screen Drugs of Abuse Note Plasma/Serum Alcohol (0-0.07) % - Medical Decision Making Differential diagnosis, including but not limited to: General medical exam, medical screening exam, medical clearance for psychiatric placement, chronic arthritis, chronic hypertension Assessment and plan: 59-year-old gentleman, who is pleasant, calm and cooperat manny, not homicidal, not suicidal, alert and oriented x3, exhibiting decision- making capacity, with no acute medical complaints at this time. Arthritis is chronic, and elevated blood pressure/hypertension is chronic. We will reconcile and continue appropriate home medications. Mental health consultation is requested. At this point in time, patient does not have an emergent medical condition that would preclude outpatient discharge with follow-up, or outpatient/inpatient psychiatric evaluation/consultation and placement. Psychiatric consultation and evaluation is pending at this time Critical care attestation.: If time is entered above; I have spent that time in minutes in the direct care of this critically ill patient, excluding procedure time. ED Disposition Clinical Impression: Elevated blood pressure reading, General medical exam, Polyarthritis Disposition: [id number]/[id number] PSY HOSP/PSY UNIT Is pt being admited?: No Does the pt Need Aspirin: No Condition: Stable Additional Instructions: Please continue current outpatient medications. Recommend that patient avoid consumption of alcohol, tobacco, smoke products. Please follow-up with your primary care doctor for hypertension and elevated blood pressure within the next month. Long-term complications of hypertension and elevated blood pressure include stroke, heart attack, disability, paralysis, loss of quality of life. Please follow-up with outpatient resources that were provided to the patient. Please return to the emergency room right away with new pain, worsening pain, migration of pain, projectile vomiting, change in mental status, confusion, inability tolerate liquid feeds, new, worsened or different symptoms not present on the initial emergency room evaluation peer Prescriptions: Acetaminophen [Acetaminophen TAB] 500 mg PO Q6H PRN #10 tablet PRN Reason: Pain, Moderate (4-6) amLODIPine 10 mg PO DAILY #30 tablet Aspirin [Aspirin BABY CHEW TAB] 81 mg PO QDAY #30 tab.chew metFORMIN [Glucophage] 500 mg PO BID #60 tablet Nicotine [Habitrol] 21 mg TD QDAY PRN #15 patch PRN Reason: Smoking Cessation hydroCHLOROthiazide [HCTZ] 25 mg PO QDAY #30 tab Ibuprofen [Motrin 800 MG tab] 800 mg PO Q8HR PRN #20 tablet PRN Reason: Pain , Severe (7-10) Multivitamin Tab [Multiple Vitamin TAB (Theragran)] 1 each PO QDAY #30 tablet Thiamine [Vitamin B-1] 100 mg PO QDAY #30 tablet Referrals: JAIRO FALLON MD [Staff Physician] - 3-5 Days [facility] [Outside] - 3-5 Days
[2020-07-25] MEDS: hydroCHLOROthiazide 25 MG TAB PO SCH (12:18)
[2020-07-25] MEDS: amLODIPine 10 MG TAB PO SCH (12:19)
[2020-07-25] MEDS: MULTIVITAMINS ,THERAPEUTIC TAB PO SCH (12:19)
[2020-07-25] MEDS: metFORMIN 500 MG TAB PO SCH ×2 (12:20→18:31)
[2020-07-25] MEDS ORDERED: QUEtiapine 25 MG TAB PO SCH (22:00)
[2020-07-26] MEDS ORDERED: ASPIRIN 81 MG TAB CHEW PO SCH (10:00)
[2020-07-26] MEDS ORDERED: THIAMINE 100 MG TAB PO SCH (10:00)
[2020-07-26] MEDS: MULTIVITAMINS ,THERAPEUTIC TAB PO SCH (10:16)
[2020-07-26] MEDS: amLODIPine 10 MG TAB PO SCH (10:16)
[2020-07-26] MEDS: hydroCHLOROthiazide 25 MG TAB PO SCH (10:17)
[2020-07-26] MEDS: metFORMIN 500 MG TAB PO SCH ×2 (10:19→18:16)
[2020-07-26] MEDS ORDERED: chlordiazePOXIDE 25 MG CAP PO PRN ×2 (11:29)
[2020-07-26] MEDS ORDERED: THIAMINE 200 MG/2 ML VIAL IM ONE (11:29)
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
[2020-07-26 19:37] VITALS: BP 167/92
[2020-07-26] MEDS ORDERED: QUEtiapine 25 MG TAB PO SCH (22:00)
== END 2020-07-26 19:40 ==
LOC: EEVIPCON 06:08 → ED 06:08
DX: M13.0 Polyarthritis, unspecified (principal); F32.9 Major depressive disorder, single episode, unspecified; Z00.00 Encounter for general adult medical examination without abnormal findings; I10 Essential (primary) hypertension; E11.9 Type 2 diabetes mellitus without complications; G43.909 Migraine, unspecified, not intractable, without status migrainosus; J44.9 Chronic obstructive pulmonary disease, unspecified; Z98.890 Other specified postprocedural states; Z79.899 Other long term (current) drug therapy; Z79.1 Long term (current) use of non-steroidal anti-inflammatories (NSAID); Z79.84 Long term (current) use of oral hypoglycemic drugs; Z88.8 Allergy status to other drugs, medicaments and biological substances; Z88.0 Allergy status to penicillin; Z91.018 Allergy to other foods
CPT/HCPCS: 36415; 80048; 80307; 81001; 82550; 82962; 83735; 85025; 99284; U0003; 80320; G0480

== ENCOUNTER 2021-04-13 16:35 | Emergency (ER) | payer MEDICAID ==
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
[2021-04-13 18:50] LABS: Bilirubin,Urine NEG (Negative); Blood,Urine NEG (Negative); Color,Urine Yellow (Yellow); Mucus,Urine FEW /HPF; Protein,Urine <15 mg/dL mg/dL (Negative)
[2021-04-13] MEDS ORDERED: cloNIDine 0.2 MG TAB PO ONE (20:11)
[2021-04-13] MEDS ORDERED: amLODIPine 5 MG TAB PO ONE (20:13)
[2021-04-13 21:24] VITALS: BP 154/107
== END 2021-04-13 21:40 | disposition home or self-care (01) ==
LOC: ED 16:35
DX: R31.9 Hematuria, unspecified (principal); M62.838 Other muscle spasm; I10 Essential (primary) hypertension; E11.9 Type 2 diabetes mellitus without complications; G43.909 Migraine, unspecified, not intractable, without status migrainosus; J44.9 Chronic obstructive pulmonary disease, unspecified; F17.200 Nicotine dependence, unspecified, uncomplicated; Z90.49 Acquired absence of other specified parts of digestive tract; Z98.890 Other specified postprocedural states; Z79.1 Long term (current) use of non-steroidal anti-inflammatories (NSAID); Z79.899 Other long term (current) drug therapy; Z88.0 Allergy status to penicillin; Z91.013 Allergy to seafood; Z88.8 Allergy status to other drugs, medicaments and biological substances
CPT/HCPCS: 81001

== ENCOUNTER 2022-04-09 10:00 | Emergency (ER) | payer MEDICAID ==
[2022-04-09 10:16] VITALS: BP 151/87
== END 2022-04-10 06:26 | disposition left against medical advice (07) ==
LOC: ED 10:00
DX: F32.A Depression, unspecified (principal); Z53.21 Procedure and treatment not carried out due to patient leaving prior to being seen by health care provider

== ENCOUNTER 2022-05-26 08:06 | Emergency (ER) | payer MEDICAID ==
[2022-05-26] MEDS ORDERED: ALBUTEROL 2.5 MG/3 ML NEBU IH ONE (08:32)
--- NOTE | 2022-05-26 08:33 | Emergency Department Report ---
Minor Respiratory - HPI Stated Complaint: PASSED OUT Time Seen by Provider: 05/26/22 08:25 Duration: 3 Days Pain Location: Chest Severity: mild Minor Respiratory: Yes Able to Tolerate Fluids, Yes Shortness of Breath, No Rhinorrhea, No Sore Throat, No Ear Pain, No Cough, No Sick Contacts, No Hemo ptysis, No Chest Pain, No Fever Other History: 61 yo comes to ER overnight with sob. Reports recent d/c from hospital for copd but he has been unable to follow up on meds. no fever. no chills. no sputum. On my exam pt in nad. ambulatory and asking to eat ED Review of Systems ROS: Stated complaint: PASSED OUT Other details as noted in HPI Comment: All other systems reviewed and negative ED Past Medical Hx - Past Medical History Previous Medical History?: Yes Hx Hypertension: Yes Hx Diabetes: Yes (Borderline) Hx Arthritis: Yes Hx Headaches / Migraines: Yes Hx Psychiatric Treatment: Yes (psychizo affective disorder) Hx Asthma: Yes Hx COPD: Yes - Surgical History Past Surgical History?: Yes Hx Cholecystectomy: Yes Additional Surgical History: hip - Family History Family history: no significant - Social History Smoking Status: Current Every Day Smoker Substance Use Type: Alcohol - Medications Home Medications: Home Medications Medication Instructions Recorded Confirmed Last Taken Type QUEtiapine [SEROquel] 25 mg PO QHS 03/06/18 07/27/20 Unknown History traZODone [Desyrel] 50 mg PO QHS #30 tablet 05/13/18 07/27/20 Unknown Rx Aspirin [Aspirin BABY CHEW TAB] 81 mg PO QDAY #30 tab.chew 07/25/20 07/27/20 Unknown Rx Multivitamin Tab [Multiple Vitamin 1 each PO QDAY #30 tablet 07/25/20 07/27/20 Unknown Rx TAB (Theragran)] Thiamine [Vitamin B-1] 100 mg PO QDAY #30 tablet 07/25/20 07/27/20 Unknown Rx amLODIPine 10 mg PO DAILY #30 tablet 07/25/20 07/27/20 Unknown Rx hydroCHLOROthiazide [HCTZ] 25 mg PO QDAY #30 tab 07/25/20 07/27/20 Unknown Rx metFORMIN [Glucophage] 500 mg PO BID #60 tablet 07/25/20 07/27/20 Unknown Rx Losartan [Cozaar] 100 mg PO QDAY 07/28/20 07/28/20 Unknown History cloNIDine [Catapres] 0.2 mg PO DAILY 07/28/20 07/28/20 Unknown History AtorvaSTATin [Lipitor] 40 mg PO QHS tablet 07/29/20 Unknown Rx Losartan [Cozaar] 100 mg PO QDAY tablet 07/29/20 Unknown Rx OLANzapine [ZyPREXA] 5 mg PO QHS #30 tablet 07/29/20 Unknown Rx QUEtiapine [SEROquel] 25 mg PO QHS #30 tablet 07/29/20 Unknown Rx Sertraline [Zoloft] 50 mg PO QDAY #30 tablet 07/29/20 Unknown Rx cloNIDine [Catapres] 0.2 mg PO DAILY@0800 tablet 07/29/20 Unknown Rx Diclofenac 1% [Diclofenac 1% 2 gm TP QID PRN #1 tube 04/13/21 Unknown Rx topical gel] ALBUTEROL NEB's [Proventil 0.083% 2.5 mg IH TID PRN #1 box 05/26/22 Unknown Rx NEBS] Albuterol Mdi (or & Nicu Only) 2 puff IH QID PRN #1 inhalation 05/26/22 Unknown Rx [ProAir HFA Inhaler] Cetirizine HCl [ZyrTEC] 10 mg PO DAILY #30 capsule 05/26/22 Unknown Rx Fluticasone [Flonase] 1 spray NS QDAY #1 bottle 05/26/22 Unknown Rx predniSONE [Deltasone] 20 mg PO DAILY #5 tablet 05/26/22 Unknown Rx Minor Respiratory Exam - Exam General: Vital signs noted. No distress. Alert and acting appropriately. HEENT: Yes Moist Mucous Membranes, No Pharyngeal Erythema, No Pharyngeal Exudates, No Rhinorrhea, No Conjuctival Injection, No Frontal Tenderness, No Maxillary Tenderness Ear: Neither TM Bulge, Neither TM Erythema, Neither EAC Pain, Neither EAC Discharge Neck: Yes Supple, No Adenopathy Lungs: Yes Good Air Exchange, Yes Wheezes, No Ronchi, No Stridor, No Cough, No Labored Respirations, No Retractions, No Use of Accessory Muscles, No Other Abnormal Lung Sounds Heart: Yes Regular, No Murmur Abdomen: Yes Normal Bowel Sounds, No Tenderness, No Peritoneal Signs Skin: No Rash, No Edema Neurologic: Alert and oriented, no deficits. Musculoskeletal: Unremarkable. ED Medical Decision Making - Lab Data Result diagrams: 05/26/22 08:42 05/26/22 08:42 - EKG Data EKG shows normal: sinus rhythm Rate: normal - EKG Data When compared to previous EKG there are: no significant change Interpretation: no acute changes - Radiology Data Radiology results: report reviewed, image reviewed nap - Medical Decision Making Labs 05/26/22 05/26/22 05/26/22 08:30 08:42 08:42 WBC 5.5 RBC 4.66 Hgb 14.2 Hct 41.6 MCV 89 MCH 30 MCHC 34 RDW 17.6 H Plt Count 196 Sodium 138 Potassium 4.4 Chloride 98.4 Carbon Dioxide 24 Anion Gap 20 BUN 23 H Creatinine 1.6 H Estimated GFR 54 BUN/Creatinine Ratio 14 Glucose 77 POC Glucose 97 Calcium 9.6 Troponin T < 0.010 Vital Signs 05/26/22 05/26/22 05/26/22 08:26 09:11 09:12 Temperature 98 F Pulse Rate 96 H 83 Pulse Rate [ 86 Anterior Bilateral Throughout] Pulse Rate [ 81 Posterior Bilateral Throughout] Respiratory 18 16 Rate Respiratory 20 Rate [Anterior Bilateral Throughout] Respiratory 21 Rate [Posterior Bilateral Throughout] Blood Pressure 163/98 Blood Pressure 148/95 [Left] O2 Sat by Pulse 100 98 Oximetry 12 lead nap xray nap labs noted duoneb given with dec wheezing. on dc exam pt ambulatory in nad. dc home with dc plan of care including diet, meds, activity and follow up. Pt verbalizes understanding of plan of care. 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 ED Disposition Clinical Impression: COPD with acute exacerbation Disposition: 01 HOME / SELF CARE / HOMELESS Is pt being admited?: No Does the pt Need Aspirin: No Condition: Stable Instructions: Chronic Obstructive Pulmonary Disease, Chronic Obstructive Pulmonary Disease (ED) Additional Instructions: follow up with pcp referral below meds as ordered today stay well hydrated with water diet and activity as tolerated Prescriptions: predniSONE [Deltasone] 20 mg PO DAILY #5 tablet Fluticasone [Flonase] 1 spray NS QDAY #1 bottle Albuterol Mdi (or & Nicu Only) [ProAir HFA Inhaler] 2 puff IH QID PRN #1 inhalation PRN Reason: Shortness Of Breath ALBUTEROL NEB's [Proventil 0.083% NEBS] 2.5 mg IH TID PRN #1 box PRN Reason: Wheezing Cetirizine HCl [ZyrTEC] 10 mg PO DAILY #30 capsule Referrals: MARIAM BARTHOLOMEW MD [Primary Care Provider] - 3-5 Days Time of Disposition: 10:36
--- NOTE | 2022-05-26 08:52 | XRay Report ---
CHEST 2 VIEWS INDICATION / CLINICAL INFORMATION: sob. COMPARISON: None available. FINDINGS: SUPPORT DEVICES: None. HEART / MEDIASTINUM: No significant abnormality. LUNGS / PLEURA: No significant pulmonary or pleural abnormality. No pneumothorax. ADDITIONAL FINDINGS: No significant additional findings. IMPRESSION: 1. No acute findings. Signer Name: Henok Gordon Jr, MD Signed: 05/26/2022 8:48 AM Workstation Name: [id number]
[2022-05-26] MEDS: IPRATROPIUM 0.02% NEBU 2.5 ML IH ONE ×2 (08:59→09:02)
[2022-05-26 09:14] VITALS: BP 163/98
[2022-05-26 10:02] LABS: Hematocrit 41.6 % (35.5-45.6); Hemoglobin 14.2 gm/dl (11.8-15.2); Mean Corpuscular HGB Conc 34 % (32-34); Mean Corpuscular Volume 89 fl (84-94); Platelet Count 196 K/mm3 (140-440); Red Blood Count 4.66 M/mm3 (3.65-5.03); Red Cell Distribution Width 17.6 % (13.2-15.2)
[2022-05-26 10:28] LABS: BUN/Creatinine Ratio 14; Blood Urea Nitrogen 23 mg/dL (9-20); Calcium 9.6 mg/dL (8.4-10.2); Hemolysis Index 16
--- NOTE | 2022-05-27 18:27 | Electrocardiograph Report ---
[facility] Test Date: 2022-05-26 Test Time: 09:02:59 Pat Name: AYSHA STOCK Department: Room: Gender: M Nursing Unit Clerk: ALONSO : 1960 Requested By: TL HITCHCOCK Order Number: [id number] Reading MD: Magali Osei Measurements Intervals Marks Rate: 86 P: 63 LA: 150 QRS: 71 QRSD: 89 T: 82 QT: 391 QTc: 465 Interpretive Statements Sinus rhythm Atrial premature complex Probable left atrial enlargement No previous ECG available for comparison Electronically Signed On 05-27-2022 18:26:51 EDT by Magali Osei
== END 2022-05-26 11:22 | disposition home or self-care (01) ==
LOC: ED 08:06
DX: J44.1 Chronic obstructive pulmonary disease with (acute) exacerbation (principal); I10 Essential (primary) hypertension; M19.90 Unspecified osteoarthritis, unspecified site; G43.909 Migraine, unspecified, not intractable, without status migrainosus; F20.9 Schizophrenia, unspecified; F17.200 Nicotine dependence, unspecified, uncomplicated; Z88.0 Allergy status to penicillin; Z91.013 Allergy to seafood; Z88.8 Allergy status to other drugs, medicaments and biological substances
CPT/HCPCS: 36415; 71046; 80048; 82962; 84484; 85027; 93005; 94640; 94644; 99284